=== PATIENT | male | born 1950 | race Caucasian/White ===

== ENCOUNTER 2018-02-06 07:43 | Day surgery (SDC) | payer BC, SELFPAY ==
--- NOTE | 2018-02-05 15:19 | POEE_ITS ---
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 He has developed a symptomatic nuclear and posterior subcapsular cataract of the left eye with visual acuity of 20/30, but with significant glare disability. The option of cataract surgery was offered to the patient and he wished to proceed. NOTE: The Chief Complaint, HPI, Past Medical History, Past Surgical History, Family History, Social History, Medications, and complete Ophthalmic Exam with detailed Assessment and Plan have already been documented in the patient's outpatient ophthalmic record and are not covered again in detail here. PFSH Nuclear sclerotic cataract of left eye (Acute) Posterior subcapsular age-related cataract of left eye (Acute) Diverticulitis large intestine Hyperlipidemia Hypertension Family History Mother Essential hypertension Diverticulosis of colon Hyperlipidemia Father Essential hypertension Diverticulosis of colon Heart disease Hyperlipidemia Sister Diabetes Essential hypertension Heart disease Hyperlipidemia Stroke Sister Diabetes Hyperlipidemia Family History Mother Essential hypertension Diverticulosis of colon Hyperlipidemia Father Essential hypertension Diverticulosis of colon Heart disease Hyperlipidemia Sister Diabetes Essential hypertension Heart disease Hyperlipidemia Stroke Sister Diabetes Hyperlipidemia Medical History Nuclear sclerotic cataract of left eye (Acute) Posterior subcapsular age-related cataract of left eye (Acute) Diverticulitis large intestine Hyperlipidemia Hypertension Social History Smoking/Tobacco Use Status: Never Social History Smoking/Tobacco Use Status: Never Meds Home Medications Medication Instructions Recorded Confirmed Type aspirin [Aspirin Low-Strength] 81 mg PO DAILY tab-cap 03/15/14 02/01/18 History amlodipine [Norvasc] 5 mg PO HS 02/02/18 02/02/18 History pravastatin [Pravachol] 20 mg PO HS 02/02/18 02/02/18 History Allergies Allergy/AdvReac Type Severity Reaction Status Date / Time No Known Allergies Allergy Unverified 02/01/18 13:22 Exam OCULAR EXAM:: Most recent ocular examination revealed corrected visual acuity of 20/200 right eye, 20/30 left eye. Pupils equal, round, and reactive without afferent pupillary defect intraocular pressure is 12 OD, 13 OS. Extraocular motility is normal. Slit-lamp examination reveals pupils dilating to 7 mm OU. There is a dense posterior polar cataract in the right eye with 3+ posterior subcapsular cataract. The left eye shows 2+ nuclear with 2+ posterior subcapsular cataract as well as some anterior subcapsular haze. Dilated funduscopic examination shows disc cupping of 0.25 OD, 0.3 OS the retinal vessels are normal. There are some mild macular pigmentary changes OU. Peripheral retina and vitreous is normal. BRIGHTNESS ACUITY TESTING (BAT):: Left eye brightness acuity testing of is 20/30 , low is 20/40, medium is 20/50, high is 20/100. Assessment and Plan (1) Posterior subcapsular age-related cataract of left eye: Current visit: No Status: Acute Assessment: Visually significant cataract, left eye. Plan: Cataract extraction with intraocular lens implantation, left eye (2) Nuclear sclerotic cataract of left eye: Current visit: No Status: Acute Assessment: Visually significant cataract, left eye. Plan: Cataract extraction with intraocular lens implantation, left eye Note: NOTE:: The details of the planned surgery, including the risks, indications, limitations,expectations,outcome and possible complications were explained to the patient. The patient understands the complications including, but not limited to: infection, hemorrhage, posterior dislocation of the lens or nuclear fragments which may require the intervention of a vitreoretinal surgeon, possible loss of the eye, or from anesthetic complications. The patient has been made aware of the option of not having surgery, that vision following surgery may not be equal to that prior to surgery, and that the planned surgery may not achieve the intended results. Following this discussion, which the patient appeared to understand, the patient wishes to proceed with cataract surgery with lens implantation of the affected eye to improve and maximize vision.
[2018-02-06 07:51] VITALS: BP 160/102; PULSE 76; TEMP 36.6; O2SAT 98
[2018-02-06] MEDS: Tropicam./Phenyleph. (1/2.5%) 5 ML BTL OS ×3 (08:08→08:17)
[2018-02-06] MEDS: Tetracaine 0.5% 4 ML BTL OS ×4 (08:09→09:16)
[2018-02-06] MEDS: Lidocaine 1% Pres-Free 5 ML VIAL (09:29)
[2018-02-06] MEDS: Lidocaine 2% Jelly 6 ML SYR (09:29)
[2018-02-06] MEDS: Balanced Salt Soln.-PLUS 500 ML BAG (09:33)
[2018-02-06] MEDS: Povidone-Iodine Ophth 30 ML BTL (09:40)
--- NOTE | 2018-02-06 09:45 | W.PM.DSUDISC ---
Discharge Plan Discharge Details Attending Provider: Abner Monroy Primary Care Provider: Yefri Madrid Home Meds and New Rx's Prescriptions: No Action aspirin [Aspirin Low-Strength] 81 MG tablet,chewable 81 mg PO DAILY RF: 0 amlodipine [Norvasc] 5 MG tablet 5 mg PO HS RF: 0 pravastatin [Pravachol] 20 MG tablet 20 mg PO HS RF: 0 Discharge Instructions Stand Alone Forms: Post-op Topical Cataract, Finn Block (DSU) DS: Diagnosis Discharge Diagnosis (1) Posterior subcapsular age-related cataract of left eye: Status: Resolved (2) Nuclear sclerotic cataract of left eye: Status: Resolved (3) Status post cataract extraction and insertion of intraocular lens of left eye: Status: Acute
--- NOTE | 2018-02-06 09:47 | ROE_ITS ---
Date of service: 02/06/18 Time of Service: 09:45 Operative Note DATE OF PROCEDURE: 02/06/18 PRE-OP DIAGNOSIS: Cataract, left eye POST-OP DIAGNOSIS: same PROCEDURE: Cataract extraction using phacoemulsification with intraocular lens implant, left eye SURGEON: Abner Monroy ANESTHESIA: MAC and local (sub-tenon's anesthetic infiltration) PATHOLOGY: none sent COMPLICATIONS: None Patient was transported to: same day Patient's condition: stable Implants: [employer] / [employer] Tecnis [id number] Indications: Progressive decreased vision due to cataract, left eye Procedure Description: CATARACT SURGERY OPERATIVE REPORT PREOPERATIVE DIAGNOSIS: Nuclear/posterior subcapsular cataract, left eye POSTOPERATIVE DIAGNOSIS: Same OPERATION: Cataract extraction using phacoemulsification with posterior chamber intraocular lens implant, left eye. IOL: IOL Bridal Stylist Sales Consultant/Model: [employer] / SANA [employer]ecnis ZCB00 IOL Power: + 18.0 diopters IOL Serial Number: [id number] Optic Diameter: 6.0mm Haptic/Overall Diameter: 13.0mm PHACO INFO: Jean[employer]Paul [employer] Vision System with OZil and Active [employer]uidics Cumulative Dispersed Energy (CDE): 6.48 seconds SURGEON: Abner Monroy MD, IVETH ANESTHESIA: Monitored Anesthesia Care (MAC), with local sub-tenon's anesthetic infiltration COMPLICATIONS: None SPECIMENS: None INDICATIONS FOR PROCEDURE: The patient is a 67-year-old male with history of progressive decreased vision in his left eye. He was noted to have a significant nuclear and posterior subcapsular cataract in the left eye. The option of cataract surgery was offered to the patient and he felt he was symptomatic enough that he wished to proceed. PROCEDURE: The correct surgical eye was identified and marked as the left eye and the pupil was dilated in the preoperative area using mydriatics and cycloplegics. The dilated pupil size was 7.0 mm. Oral sedation was administered in the form of an Imprimis MKO Melt (midazolam 3mg/ketamine 25mg/ ondansetron 2mg). The patient was brought to the operating room where cardiopulmonary monitoring was instituted and surgical time-out was performed, confirming the correct operative eye and IOL power. Topical anesthesia was administered and ophthalmic povidone-iodine 5% was instilled into the conjunctival fornices. Lidocaine gel was applied to the cornea and the raúl-ocular area was prepped with Betadine 10% solution and draped in the usual sterile fashion for intraocular surgery, including an aperture drape. A Tegaderm transparent film dressing was cut in half and used to cover the lashes and lid margins. Care was taken to sequester the lashes and lid margins under the Tegaderm dressing. A lid speculum was placed between the lids of the operative eye and the [facility] operating microscope was maneuvered into position. Barron scissors were then used to make a conjunctival buttonhole approximately 6mm posterior to the limbus in the inferonasal quadrant. Blunt dissection was carried out to expose bare sclera, and a blunt-tipped sub-tenon? s anesthesia cannula was introduced and passed posteriorly along the globe where non-preserved plain lidocaine was injected into posterior sub-Tenon?s space. A sideport knife was used to make a paracentesis port at the 12:00 postion and the anterior chamber was filled with Healon GV. A 2.4mm keratome knife was used to create a half-thickness groove at the limbus and then to construct a three-plane near-clear corneal tunnel extending 2.0mm into clear cornea at the 3:00 position. A flap was raised on the anterior capsule and capsulorhexis forceps were used to complete a continuous curvilinear capsulorhexis of 5.5 mm. Balanced salt solution was then used to perform cortical cleaving hydrodissection and nuclear hydrodelineation until the lens could be freely rotated within the capsular bag. The lens nucleus was then disassembled and removed within the capsular bag and iris plane using phacoemulsification. Residual cortical material was removed using the 45-degree angled silicone I/A tip with 0.3mm port. The posterior capsule was carefully polished to remove as much residual lens epithelial cells as safely possible. The capsular bag was then inflated and the anterior chamber deepened with viscoelastic. The lens implant described above was inserted into the capsular bag using the SANA Oketo Injector. A Kuglen hook was used to dial the IOL into position. Residual viscoelastic was then removed first from posterior to the IOL, then from the anterior chamber using the I/A handpiece. The lens implant was noted to center nicely within the capsular bag. The incisions were stromally hydrated , and the anterior chamber was reformed using BSS. Then 0.4cc of moxifloxacin 1.5mg/ml were injected into the capsular bag and anterior chamber. The incisions were checked with a Weck spear and found to be secure. Several drops of ophthalmic povidone-iodine 5% were then applied to the eye followed by two drops of Imprimis combination moxifloxacin/dexamethasone solution. The drapes were removed and a clear plastic protective eye shield was placed over the eye. The patient was then returned to [facility] in stable condition.
[2018-02-06 10:15] VITALS: BP 136/90; PULSE 74; RESP 18; TEMP 37; O2SAT 95
== END 2018-02-06 13:00 | disposition home or self-care (01) ==
LOC: SUR 07:44
PROVIDERS: PCP Emergency Medicine; Visit Provider Ophthalmology
PROC: (CPT 66984; principal; 2018-02-06 09:30)
DX: H25.812 Combined forms of age-related cataract, left eye (principal); I10 Essential (primary) hypertension
CPT/HCPCS: 66984; V2632

== ENCOUNTER 2018-03-15 09:45 | Outpatient (CLI) | payer BC, SELFPAY | END 2018-03-15 10:05 | PROVIDERS: PCP Emergency Medicine; Visit Provider Urology | DX: N42.9 Disorder of prostate, unspecified (principal) | CPT/HCPCS: 36415; 84153 ==

== ENCOUNTER 2018-03-30 09:34 | Outpatient (CLI) | payer BC, SELFPAY ==
[2018-03-30 09:07] LABS: CREATININE 0.87 mg/dL (0.70-1.30)
--- NOTE | 2018-03-30 09:35 | DI.CT_ITS ---
SYMPTOM/DIAGNOSIS: RECURRENT DIVERTICULITIS CT ABDOMEN AND PELVIS: Comparison is made with 21 Oct 2013. Images were performed from the lung bases through the ischial tuberosities after IV and oral contrast. The oral contrast opacifies the mid to distal small bowel and the colon to the level of the lower descending. There are numerous diverticula in the sigmoid colon. There is no surrounding inflammation. There is no free air or free fluid. The small bowel is unremarkable. The heart size is normal. The lung bases are clear. The liver, gallbladder, spleen, pancreas, kidneys and adrenals are unremarkable. There is a diverticulum of the descending duodenum. The aorta and iliac arteries show calcification but are normal in diameter. The prostate is slightly enlarged. The bladder is unremarkable. Mild degenerative changes are seen in the lumbar spine. IMPRESSION: diverticulosis greatest in the sigmoid region. No evidence of diverticulitis.
[2018-03-30] MEDS: Omnipaque 350 MG/ML 100 ML BTL IJ (09:46)
[2018-03-30] MEDS: Omnipaque 350 MG/ML 50 ML BTL PO (09:47)
[2018-03-30] MEDS: Breeza Beverage 473 ML BTL PO ×2 (09:47→09:48)
[2018-03-30] MEDS: Normal Saline Flush 10 ML SYR IVP (09:48)
== END 2018-03-30 09:54 ==
PROVIDERS: PCP Emergency Medicine; Visit Provider Emergency Medicine
DX: K57.30 Diverticulosis of large intestine without perforation or abscess without bleeding (principal); K57.10 Diverticulosis of small intestine without perforation or abscess without bleeding; N40.0 Benign prostatic hyperplasia without lower urinary tract symptoms
CPT/HCPCS: 36415; 74177; 82565; J3490; Q9967

== ENCOUNTER 2018-09-13 09:39 | Outpatient (CLI) | payer BC, SELFPAY | END 2018-09-13 09:59 | PROVIDERS: PCP Emergency Medicine; Visit Provider Urology | DX: N40.0 Benign prostatic hyperplasia without lower urinary tract symptoms (principal) | CPT/HCPCS: 36415; 84153 ==

== ENCOUNTER 2019-03-06 09:55 | Outpatient (CLI) | payer BC, SELFPAY ==
[2019-03-07 13:08] LABS: PSA, Diagnostic 1.2 ng/mL (0.0-4.5)
== END 2019-03-06 10:15 ==
PROVIDERS: PCP Emergency Medicine; Visit Provider Urology
DX: N40.2 Nodular prostate without lower urinary tract symptoms (principal)
CPT/HCPCS: 36415; 84153

== ENCOUNTER → 2019-09-11 08:26 | Outpatient (BNVA) | payer MEDICARE, BC, SELFPAY | PROVIDERS: PCP Emergency Medicine; Referring Provider Emergency Medicine; Visit Provider Urology | DX: N40.2 Nodular prostate without lower urinary tract symptoms (principal); I10 Essential (primary) hypertension | CPT/HCPCS: 99213 ==

== ENCOUNTER → 2019-09-11 08:26 | Outpatient (BNVA) | payer MEDICARE, SELFPAY | PROVIDERS: PCP Emergency Medicine; Referring Provider Emergency Medicine; Visit Provider Urology | DX: R69 Illness, unspecified (principal) ==

== ENCOUNTER 2019-09-11 14:37 | Outpatient (REF) | payer MEDICARE, SELFPAY ==
[2019-09-12 09:26] LABS: PSA, Diagnostic 1.1 ng/mL (0.0-4.5)
== END 2019-09-11 14:57 ==
LOC: LBN 14:37
PROVIDERS: PCP Emergency Medicine; Visit Provider Urology
DX: N40.2 Nodular prostate without lower urinary tract symptoms (principal)
CPT/HCPCS: 84153

== ENCOUNTER 2019-10-30 09:17 | Outpatient (REF) | payer MEDICARE, SELFPAY ==
[2019-10-30 13:31] LABS: Calculated LDL 149 mg/dL (<100); Cholesterol 225 mg/dL (<200); HDL Cholesterol 53 mg/dL (40-60); Triglyceride 118 mg/dL (<150)
== END 2019-10-30 09:37 ==
LOC: LBN 09:17
PROVIDERS: PCP Emergency Medicine; Visit Provider Emergency Medicine
DX: I10 Essential (primary) hypertension (principal)
CPT/HCPCS: 80061

== ENCOUNTER → 2019-11-07 13:19 | Outpatient (BNVA) | payer MEDICARE, SELFPAY | PROVIDERS: PCP Emergency Medicine; Referring Provider Emergency Medicine; Visit Provider Surgery | DX: C44.622 Squamous cell carcinoma of skin of right upper limb, including shoulder (principal); I10 Essential (primary) hypertension | CPT/HCPCS: 11602; 99202; 99213 ==

== ENCOUNTER 2019-11-07 14:51 | Outpatient (REF) | payer MEDICARE, SELFPAY ==
--- NOTE | 2019-11-07 14:20 | SKI_PTH ---
PATIENT: Philpi Heller JR LOC: GENE U#:[id number] AGE/SX: 68/M ROOM: RE11/07/[address]: Shauna Bales : 1950 BED: DIS: 11/07/2019 SPEC #: [id number] RECD: 11/07/19 16:42 STATUS: KRISTIN REQ #: [id number] SRIDHAR: 11/07/19 14:[address]: Shauna Bales DEPT: Surgical Specimen RECD BY: Mireille Asencio ENTERED: 11/07/19 16:43 SP TYPE: GWYN HAWKINS DR: Yefri Madrid DO Tissues: 1 - SKIN BIOPSY(SHAVE/PUNCH) Procedures: SKIN LEVEL 4 Comments: [id number]
== END 2019-11-07 15:11 ==
LOC: LBN 14:51
PROVIDERS: PCP Emergency Medicine; Visit Provider Surgery
DX: C44.622 Squamous cell carcinoma of skin of right upper limb, including shoulder (principal)
CPT/HCPCS: 88305

== ENCOUNTER → 2019-11-16 08:57 | Outpatient (BNVA) | payer MEDICARE, SELFPAY | PROVIDERS: PCP Emergency Medicine; Referring Provider Emergency Medicine; Visit Provider Surgery | DX: C44.92 Squamous cell carcinoma of skin, unspecified (principal); I10 Essential (primary) hypertension ==

== ENCOUNTER → 2019-11-21 09:25 | Outpatient (BNVA) | payer MEDICARE, SELFPAY | PROVIDERS: PCP Emergency Medicine; Referring Provider Emergency Medicine; Visit Provider Surgery | DX: Z48.817 Encounter for surgical aftercare following surgery on the skin and subcutaneous tissue (principal); C44.92 Squamous cell carcinoma of skin, unspecified; I10 Essential (primary) hypertension | CPT/HCPCS: 99212 ==

== ENCOUNTER → 2020-03-11 08:45 | Outpatient (BNVA) | payer MEDICARE, SELFPAY | PROVIDERS: PCP Emergency Medicine; Referring Provider Emergency Medicine; Visit Provider Urology | DX: N40.2 Nodular prostate without lower urinary tract symptoms (principal) | CPT/HCPCS: 99213 ==

== ENCOUNTER 2020-03-11 10:27 | Outpatient (REF) | payer MEDICARE, SELFPAY ==
[2020-03-11 17:56] LABS: PSA, Diagnostic 1.3 ng/mL (0.0-4.5)
== END 2020-03-11 10:47 ==
LOC: LBN 10:27
PROVIDERS: PCP Emergency Medicine; Visit Provider Urology
DX: N40.2 Nodular prostate without lower urinary tract symptoms (principal)
CPT/HCPCS: 84153

== ENCOUNTER 2020-08-29 01:47 | Outpatient (CLI) | payer MEDICARE, SELFPAY ==
[2020-08-29 09:44] LABS: ALT 30 U/L (16-63); AST 20 U/L (15-37); Albumin 3.8 g/dL (3.4-5.0); Alkaline Phosphatase 76 U/L (46-116); Anion Gap 10.6 mmol/L (3-11); BUN 13 mg/dL (7-18); Bilirubin, Total 1.1 mg/dL (0.2-1.0); CO2 28.4 mmol/L (21.0-32.0); CREATININE 0.9 mg/dL (0.70-1.30); Calculated LDL 119 mg/dL (<100); Chloride 105 mmol/L (98-107); Cholesterol 186 mg/dL (<200); Glucose 96 mg/dL (74-106); HDL Cholesterol 51 mg/dL (40-60); Potassium 4.3 mmol/L (3.5-5.1); Sodium 144 mmol/L (136-145); Total Protein 6.7 g/dL (6.4-8.2); Triglyceride 83 mg/dL (<150)
== END 2020-08-29 01:48 | disposition home or self-care (01) ==
LOC: LBO 01:47
PROVIDERS: Urology; PCP Emergency Medicine; Visit Provider Nurse Practitioner Family
DX: I10 Essential (primary) hypertension (principal); N40.2 Nodular prostate without lower urinary tract symptoms
CPT/HCPCS: 36415; 80053; 80061; 84153

== ENCOUNTER → 2020-09-12 09:49 | Outpatient (BNVA) | payer MEDICARE, SELFPAY | PROVIDERS: PCP Emergency Medicine; Referring Provider Emergency Medicine; Visit Provider Urology | DX: N40.2 Nodular prostate without lower urinary tract symptoms (principal) | CPT/HCPCS: 99213 ==

== ENCOUNTER 2021-03-11 03:17 | Outpatient (CLI) | payer MEDICARE, SELFPAY ==
[2021-03-11 23:09] LABS: PSA, Diagnostic 1.5 ng/mL (0.0-4.5)
== END 2021-03-11 03:18 | disposition home or self-care (01) ==
LOC: LBO 03:18
PROVIDERS: PCP Emergency Medicine; Visit Provider Urology
DX: N40.2 Nodular prostate without lower urinary tract symptoms (principal)
CPT/HCPCS: 36415; 84153

== ENCOUNTER → 2021-03-17 10:23 | Outpatient (BNVA) | payer MEDICARE, SELFPAY | PROVIDERS: PCP Physician Assistant; Referring Provider Emergency Medicine; Visit Provider Urology | DX: N40.2 Nodular prostate without lower urinary tract symptoms (principal) | CPT/HCPCS: 99213 ==

== ENCOUNTER → 2021-04-22 13:46 | Outpatient (BNVA) | payer MEDICARE, SELFPAY | PROVIDERS: PCP Physician Assistant; Referring Provider Urology; Visit Provider Psychiatry & Neurology Neurology | DX: R42 Dizziness and giddiness (principal) | CPT/HCPCS: 99214 ==

== ENCOUNTER 2021-04-23 07:11 | Outpatient (CLI) | payer MEDICARE, SELFPAY ==
--- NOTE | 2021-05-11 10:31 | W.CARDEVENT ---
Date of service: 05/11/21 Time of Service: 10:31 Cardiac Event Recorder Referring Provider:: Jaylene Taveras Indications:: Dizziness Cardiac Event Note: There is a 14-day cardiac event monitor ordered for dizziness. Predominant rhythm was sinus with an average heart rate of 59. Minimum was 41, maximum 134 There were very rare atrial and ventricular ectopic beats A total of 12 brief self-limited atrial runs occurred, the longest of which was 7 beats in duration There was no atrial fibrillation, no high-grade AV block, no pauses greater than 3 seconds Patient symptoms were reported. These corresponded to sinus rhythm at 59, sinus rhythm at 64, sinus rhythm at 80, sinus rhythm at 63, sinus rhythm at 84, sinus rhythm at 78, sinus rhythm at 51, sinus rhythm at 72, sinus rhythm at 90. Overall there is no correlation of the patient's symptoms with any dysrhythmia
== END 2021-04-23 07:12 | disposition home or self-care (01) ==
LOC: RT 07:12
PROVIDERS: PCP Physician Assistant; Visit Provider Psychiatry & Neurology Neurology
DX: R42 Dizziness and giddiness (principal)
CPT/HCPCS: 93246

== ENCOUNTER 2021-05-01 10:31 | Outpatient (CLI) | payer MEDICARE, SELFPAY | END 2021-05-01 10:32 | LOC: CARDO 06-08 11:43 | PROVIDERS: PCP Physician Assistant; Visit Provider Internal Medicine Cardiovascular Disease | DX: R69 Illness, unspecified (principal) ==

== ENCOUNTER 2021-05-02 10:08 | Emergency (ER) | payer MEDICARE, SELFPAY ==
--- NOTE | 2021-05-02 10:15 | RT.EKG_ITS ---
APPROVED REPORT Exam: Resting ECG Reason for Exam: lightheaded, left arm sensation Patient Location: E HR:64 bpm ECG Measurements Heart Rate 64 AXIS CA 227 P 53 QRSd 79 QRS 34 QT 376 T 31 QTc 389 Conclusion Sinus arrhythmia...V-rate 52- 75, variation>10% Prolonged CA interval...CA >220, V-rate 50- 90. Sinus. Normal axis. No STEMI. I have reviewed and interpreted ECG and agree with software generated interpretation.
[2021-05-02 10:26] VITALS: BP 142/78; PULSE 73; RESP 15; TEMP 36.7; O2SAT 99
[2021-05-02 10:32] VITALS: RESP 15
[2021-05-02 11:16] LABS: Abs Immature Grans 0.04 10^3/uL (0.0-0.06); Absolute Basophil Count 0.07 10^3/uL (0.0-0.2); Absolute Eosinophil Count 0.15 10^3/uL (0.0-0.7); Absolute Lymphocyte Count 1.37 10^3/uL (1.2-3.4); Absolute Monocyte Count 0.61 10^3/uL (0.1-0.8); Absolute Neutrophil Count 7.06 10^3/uL (1.2-6.7); Basophils % 0.8; Eosinophils % 1.6; HCT 48.1 % (40.0-50.0); HGB 16.3 g/dL (13.5-17.5); Immature Grans % 0.4; Lymphocytes % 14.7; MCH 29.5 pg (27.0-33.0); MCHC 33.9 % (32.0-36.0); MPV 10.2 fL (8.0-11.0); Monocytes % 6.6; Neutrophils % 75.9; Nucleated RBC 0 %; Platelet Count 254 10^3/uL (130-400); RBC 5.53 10^6/uL (4.36-5.78); RDW 12.8 % (11.8-14.1); RDW-SD 40.7 fL
[2021-05-02 11:33] LABS: ALT 25 U/L (16-63); AST 26 U/L (15-37); Albumin 3.8 g/dL (3.4-5.0); Alkaline Phosphatase 76 U/L (46-116); Anion Gap 4.6 mmol/L (3-11); BUN 9 mg/dL (7-18); Bilirubin, Total 0.7 mg/dL (0.2-1.0); CO2 28.4 mmol/L (21.0-32.0); CREATININE 0.9 mg/dL (0.70-1.30); Calcium 8.9 mg/dL (8.5-10.1); Chloride 109 mmol/L (98-107); Glucose 105 mg/dL (74-106); Magnesium 2.3 mg/dL (1.8-2.4); Potassium 4.1 mmol/L (3.5-5.1); Sodium 142 mmol/L (136-145); Total Protein 6.8 g/dL (6.4-8.2); Troponin I < 50 ng/L (<or=60)
[2021-05-02 11:47] LABS: D-Dimer 364 ng/mlFEU (<500)
[2021-05-02 13:36] VITALS: BP 139/76; PULSE 60; RESP 15; TEMP 36.6
[2021-05-02 14:14] VITALS: BP 140/80; PULSE 60; RESP 14; TEMP 36.6; O2SAT 96
--- NOTE | 2021-05-02 14:15 | RT.EKG_ITS ---
APPROVED REPORT Exam: Resting ECG Reason for Exam: Lightheadedness Patient Location: E HR:60 bpm ECG Measurements Heart Rate 60 AXIS OR 227 P 40 QRSd 85 QRS 27 QT 404 T 27 QTc 405 Conclusion Sinus rhythm...normal P axis, V-rate 60- 99 Prolonged OR interval...OR >220, V-rate 50- 90. Sinus. Normal axis. No STEMI. I have reviewed and interpreted ECG and agree with software generated interpretation.
[2021-05-02 14:19] LABS: Troponin I < 50 ng/L (<or=60)
--- NOTE | 2021-05-02 14:23 | W.ED.GENAD ---
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 If you have any new or significant worsening of symptoms return immediately to the emergency department for reassessment. Referrals: Duong Gomez [Primary Care Provider] - (As needed for reassessment) Discharge Data Discharge Date/Time-TO BE ENTERED AT DEPARTURE: 05/02/21 14:42 Medical Decision Making Patient presenting to the emergency department for chief complaint of lightheadedness and some abnormal sensation in the left upper extremity. He states he has been having these episodes now for 2 months and is wearing a Zio patch. Patient has seen neurology and they are continuing work-up. Patient denies fever chills, injury or trauma, syncope. Patient states that the majority of symptoms have resolved and that significant other wanted him to come get checked out. He does state that this is very typical of what he had in the past. Physical exam is unremarkable for any acute worrisome findings. Plan to perform cardiac work-up along with continuing monitoring patient. Please see EKG interpretation from Dr. Rae but patient appears to be in sinus rhythm with no acute signs of STEMI. Review of labs is unremarkable and shows nondiagnostic CBC, D-dimer at 364, CMP nondiagnostic nonworrisome and troponins both negative. Reassessed patient and patient is completely asymptomatic and feeling back to baseline. Given unremarkable work-up I do feel the patient is safe for outpatient follow-up and to continue with neurology recommendations. Close monitoring of symptoms along with return and follow-up precautions were discussed with patient. Lab Data Labs: Laboratory Tests Range/Units 05/02/21 05/02/21 05/02/21 11:06 11:06 11:06 WBC (4.4-10.8) 10^3/uL 9.30 RBC (4.36-5.78) 10^6/uL 5.53 Hgb (13.5-17.5) g/dL 16.3 Hct (40.0-50.0) % 48.1 MCV (80-95) fL 87.0 MCH (27.0-33.0) pg 29.5 MCHC (32.0-36.0) % 33.9 RDW (11.8-14.1) % 12.8 Plt Count (130-400) 10^3/uL 254 MPV (8.0-11.0) fL 10.2 Immature Gran % 0.4 Neutrophils % 75.9 Lymphocytes % 14.7 Monocytes % 6.6 Eosinophils % 1.6 Basophils % 0.8 Nucleated RBC % % 0 Absolute Neutrophils (1.2-6.7) 10^3/uL 7.06 H Absolute Lymphocytes (1.2-3.4) 10^3/uL 1.37 Absolute Monocytes (0.1-0.8) 10^3/uL 0.61 Absolute Eosinophils (0.0-0.7) 10^3/uL 0.15 Absolute Basophils (0.0-0.2) 10^3/uL 0.07 D-Dimer (<500) ng/mlFEU 364 Sodium (136-145) mmol/L 142 Potassium (3.5-5.1) mmol/L 4.1 Chloride (98-107) mmol/L 109 H Carbon Dioxide (21.0-32.0) mmol/L 28.4 Anion Gap (3-11) mmol/L 4.6 BUN (7-18) mg/dL 9 Creatinine (0.70-1.30) mg/dL 0.9 Estimated GFR/1.73 m2 (mL/min/1.73m2) >= 60.00 Glucose (74-106) mg/dL 105 Calcium (8.5-10.1) mg/dL 8.9 Magnesium (1.8-2.4) mg/dL 2.3 Total Bilirubin (0.2-1.0) mg/dL 0.7 AST (15-37) U/L 26 ALT (16-63) U/L 25 Alkaline Phosphatase (46-116) U/L 76 Troponin I (<or=60) ng/L < 50 Total Protein (6.4-8.2) g/dL 6.8 Albumin (3.4-5.0) g/dL 3.8 Range/Units 05/02/21 13:55 WBC (4.4-10.8) 10^3/uL RBC (4.36-5.78) 10^6/uL Hgb (13.5-17.5) g/dL Hct (40.0-50.0) % MCV (80-95) fL MCH (27.0-33.0) pg MCHC (32.0-36.0) % RDW (11.8-14.1) % Plt Count (130-400) 10^3/uL MPV (8.0-11.0) fL Immature Gran % Neutrophils % Lymphocytes % Monocytes % Eosinophils % Basophils % Nucleated RBC % % Absolute Neutrophils (1.2-6.7) 10^3/uL Absolute Lymphocytes (1.2-3.4) 10^3/uL Absolute Monocytes (0.1-0.8) 10^3/uL Absolute Eosinophils (0.0-0.7) 10^3/uL Absolute Basophils (0.0-0.2) 10^3/uL D-Dimer (<500) ng/mlFEU Sodium (136-145) mmol/L Potassium (3.5-5.1) mmol/L Chloride (98-107) mmol/L Carbon Dioxide (21.0-32.0) mmol/L Anion Gap (3-11) mmol/L BUN (7-18) mg/dL Creatinine (0.70-1.30) mg/dL Estimated GFR/1.73 m2 (mL/min/1.73m2) Glucose (74-106) mg/dL Calcium (8.5-10.1) mg/dL Magnesium (1.8-2.4) mg/dL Total Bilirubin (0.2-1.0) mg/dL AST (15-37) U/L ALT (16-63) U/L Alkaline Phosphatase (46-116) U/L Troponin I (<or=60) ng/L < 50 Total Protein (6.4-8.2) g/dL Albumin (3.4-5.0) g/dL HPI General Mode of arrival: ambulatory. Date/Time Provider Initiated Documentation: 05/02/21 10:33. Limitations to Documentation: no limitations. Information obtained by: patient. History of Present Illness 70 year old M presents to the emergency department with the chief complaint of Lightheadedness and left arm warm sensation, described as similar to prior episodes, Quality is described as other (denies pain), Patient started experiencing this hour(s) (1) and it has been now resolved. improves with No relieving factors improve symptom(s), No exacerbating factors reported . Patient notes no other symptoms.. Patient did receive the following treatments prior to arrival, none Related Data Home Medications Medication Instructions Recorded Confirmed amlodipine 5 mg tablet (Norvasc) 5 mg PO HS #90 tab 10/15/20 05/02/21 pravastatin 40 mg tablet 40 mg PO DAILY #90 tab 10/30/20 05/02/21 fluticasone propionate 50 2 spray INTRANASAL DAILY 30 Days 12/02/20 05/02/21 mcg/actuation nasal #16 g spray,suspension (Flonase Allergy Relief) Previous Rx's Medication Instructions Recorded amlodipine 5 mg tablet (Norvasc) 5 mg PO HS #90 tab 10/15/20 pravastatin 40 mg tablet 40 mg PO DAILY #90 tab 10/30/20 fluticasone propionate 50 2 spray INTRANASAL DAILY 30 Days 12/02/20 mcg/actuation nasal #16 g spray,suspension (Flonase Allergy Relief) Allergies Allergy/AdvReac Type Severity Reaction Status Date / Time No Known Allergies Allergy Verified 05/02/21 11:17 General Stated Complaint: GenMedical MANUEL: 2 Review of Systems Constitutional Constitutional: Denies chills, Denies fever(s) and Denies malaise Cardiovascular Cardiovascular: Reports as per HPI, Denies chest pain, Denies chest pain with activity, Denies syncope, Reports irregular heart rhythm, Reports lightheadedness, Denies palpitations and Denies dyspnea Respiratory Respiratory: Denies cough and Denies dyspnea Gastrointestinal Gastrointestinal: Denies abdominal pain, Denies nausea and Denies vomiting Neurologic Neurologic: Denies syncope Psychiatric Psychiatric: Denies anxiety Endocrine Endocrine: Denies palpitations PFSH All Active Problems Lightheadedness (Acute) Chronic rhinitis (Acute) Postnasal drip (Acute) Crackling sound in both ears (Acute) Unable to pass flatus (Acute) Sensorineural hearing loss of both ears (Acute) Middle ear effusion (Acute) Squamous cell skin cancer (Acute) Skin lesion (Acute) Diverticulitis of large intestine with abscess without bleeding (Acute 05/16/15) Prostatitis (Acute 01/31/12) Diverticulitis of colon (Acute) Basal cell carcinoma of face (Acute) Status post cataract extraction and insertion of intraocular lens of left eye (Acute 02/06/18) Prostate nodule (Acute 05/16/15) Hyperlipidemia (Acute) Essential hypertension (Acute 03/22/13) Diastasis recti (Acute 06/30/16) Cervical radiculopathy (Acute 06/30/16) left Cataract (Acute 01/31/12) RIGHT Actinic keratosis (Acute 05/16/15) Medical History Diverticulitis large intestine Hyperlipidemia Hypertension Nuclear sclerotic cataract of left eye Posterior subcapsular age-related cataract of left eye Surgical History History of basal cell carcinoma excision History of colonoscopy History of eye surgery Family History Mother , 84 Essential hypertension Diverticulosis of colon Hyperlipidemia Father , 79 Essential hypertension Diverticulosis of colon Heart disease Hyperlipidemia Sister , 78 Diabetes Essential hypertension Heart disease Hyperlipidemia Stroke Sister , 75 Diabetes Hyperlipidemia Social History Smoking/Tobacco Use Status: Never Second Hand Exposure: Yes Smoking risk assessment performed?: Yes Alcohol Intake: former Drug use: Never Substance use type: does not use Caregiver/Support person: No Household members: spouse Housing: house Number of Children: 2 Communication Needs: Corrective Lenses Do you need help understanding health information?: Never current occupation: Retired Pets and animals: Yes Pets and animals: cat(s) Sexually active: Yes Do you think of yourself as: straight/heterosexual Current gender identity: decline to answer What is your relationship status?: How often do you talk on the phone with friends or family?: three or more times per week How often do you get together with friends or relatives?: twice per week How often do you attend scientologist or yarsani services?: 4 or more times per year Do you belong to any clubs or organized social groups?: yes Panel score (0-1 are the most socially isolated patients): 4 What type of physical activity do you participate in: walking Duration: > 90 minutes/day Frequency: daily Chrissy/Catholic: Orthodox Special chrissy needs: No Seatbelt use: always 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 Do you feel safe at home: Yes Do you feel safe in your relationship?: Yes Exam Const General: cooperative, healthy appearing, comfortable, no acute distress, not diaphoretic and not ill appearing Nutritional Appearance: average body habitus Orientation: alert, awake and oriented x3 Limitations: mental status not altered Neck Neck: normal visual inspection, full ROM, trachea midline, supple and no anterior neck swelling Thyroid: thyroid normal Carotids: normal carotid upstroke and no bruits Resp Effort & Inspection: normal respiratory effort and able to speak in complete sentences Auscultation: clear to auscultation bilaterally Cardio Jugular venous pressure: no JVD Palpation: normal PMI Rate: regular rate Rhythm: regular rhythm Heart Sounds: S1 normal, S2 normal, no click, no gallops, no murmurs and no rubs Bruits: no carotid bruits Pulses: radial pulses present bilaterally 2+ Skin General skin exam: no rashes or lesions noted Neuro General: patient alert, patient awake, patient oriented x3, gait normal, tone normal, moves all extremities, no focal motor deficits, CN's II-XI intact bilaterally and not confused Cognition: normal cognition Speech: speech normal Sensory Exam: no sensory deficits noted Course Vital Signs Vital signs: Vital Signs Temperature 36.7 C 05/02/21 10:26 Pulse 73 05/02/21 10:26 Respiratory Rate 15 05/02/21 10:26 Blood Pressure 142/78 H 05/02/21 10:26 Pulse Oximetry 99 05/02/21 10:26 Temperature 36.6 C 05/02/21 14:14 Temperature Source Temporal Artery Scan 05/02/21 13:36 Pulse 60 05/02/21 14:14 Respiratory Rate 14 05/02/21 14:14 Respiratory Effort Non-Labored 05/02/21 10:32 Respiratory Depth Normal 05/02/21 10:32 Respiratory Pattern Normal 05/02/21 10:32 Blood Pressure 140/80 05/02/21 14:14 Blood Pressure Position Supine 05/02/21 10:26 Pulse Oximetry 96 05/02/21 14:14 Oxygen Delivery Method Room Air 05/02/21 13:36 Oxygen Flow Rate 0 05/02/21 13:36 Pain Level 0 05/02/21 14:14 Lab/Test Results Lab/Test Results: Laboratory Tests Range/Units 05/02/21 05/02/21 05/02/21 11:06 11:06 11:06 WBC (4.4-10.8) 10^3/uL 9.30 RBC (4.36-5.78) 10^6/uL 5.53 Hgb (13.5-17.5) g/dL 16.3 Hct (40.0-50.0) % 48.1 MCV (80-95) fL 87.0 MCH (27.0-33.0) pg 29.5 MCHC (32.0-36.0) % 33.9 RDW (11.8-14.1) % 12.8 Plt Count (130-400) 10^3/uL 254 MPV (8.0-11.0) fL 10.2 Immature Gran % 0.4 Neutrophils % 75.9 Lymphocytes % 14.7 Monocytes % 6.6 Eosinophils % 1.6 Basophils % 0.8 Nucleated RBC % % 0 Absolute Neutrophils (1.2-6.7) 10^3/uL 7.06 H Absolute Lymphocytes (1.2-3.4) 10^3/uL 1.37 Absolute Monocytes (0.1-0.8) 10^3/uL 0.61 Absolute Eosinophils (0.0-0.7) 10^3/uL 0.15 Absolute Basophils (0.0-0.2) 10^3/uL 0.07 D-Dimer (<500) ng/mlFEU 364 Sodium (136-145) mmol/L 142 Potassium (3.5-5.1) mmol/L 4.1 Chloride (98-107) mmol/L 109 H Carbon Dioxide (21.0-32.0) mmol/L 28.4 Anion Gap (3-11) mmol/L 4.6 BUN (7-18) mg/dL 9 Creatinine (0.70-1.30) mg/dL 0.9 Estimated GFR/1.73 m2 (mL/min/1.73m2) >= 60.00 Glucose (74-106) mg/dL 105 Calcium (8.5-10.1) mg/dL 8.9 Magnesium (1.8-2.4) mg/dL 2.3 Total Bilirubin (0.2-1.0) mg/dL 0.7 AST (15-37) U/L 26 ALT (16-63) U/L 25 Alkaline Phosphatase (46-116) U/L 76 Troponin I (<or=60) ng/L < 50 Total Protein (6.4-8.2) g/dL 6.8 Albumin (3.4-5.0) g/dL 3.8 Range/Units 05/02/21 13:55 WBC (4.4-10.8) 10^3/uL RBC (4.36-5.78) 10^6/uL Hgb (13.5-17.5) g/dL Hct (40.0-50.0) % MCV (80-95) fL MCH (27.0-33.0) pg MCHC (32.0-36.0) % RDW (11.8-14.1) % Plt Count (130-400) 10^3/uL MPV (8.0-11.0) fL Immature Gran % Neutrophils % Lymphocytes % Monocytes % Eosinophils % Basophils % Nucleated RBC % % Absolute Neutrophils (1.2-6.7) 10^3/uL Absolute Lymphocytes (1.2-3.4) 10^3/uL Absolute Monocytes (0.1-0.8) 10^3/uL Absolute Eosinophils (0.0-0.7) 10^3/uL Absolute Basophils (0.0-0.2) 10^3/uL D-Dimer (<500) ng/mlFEU Sodium (136-145) mmol/L Potassium (3.5-5.1) mmol/L Chloride (98-107) mmol/L Carbon Dioxide (21.0-32.0) mmol/L Anion Gap (3-11) mmol/L BUN (7-18) mg/dL Creatinine (0.70-1.30) mg/dL Estimated GFR/1.73 m2 (mL/min/1.73m2) Glucose (74-106) mg/dL Calcium (8.5-10.1) mg/dL Magnesium (1.8-2.4) mg/dL Total Bilirubin (0.2-1.0) mg/dL AST (15-37) U/L ALT (16-63) U/L Alkaline Phosphatase (46-116) U/L Troponin I (<or=60) ng/L < 50 Total Protein (6.4-8.2) g/dL Albumin (3.4-5.0) g/dL
== END 2021-05-02 14:42 | disposition home or self-care (01) ==
PROVIDERS: Emergency Provider Nurse Practitioner Family; PCP Physician Assistant
DX: R42 Dizziness and giddiness (principal); R20.2 Paresthesia of skin
CPT/HCPCS: 36415; 80053; 93005; 99283; 83735; 84484; 85025; 85379; 93010

== ENCOUNTER 2021-05-11 10:31 | Outpatient (CLI) | payer MEDICARE, SELFPAY | END 2021-05-11 10:32 | LOC: CARDO 06-08 11:46 | PROVIDERS: PCP Physician Assistant; Visit Provider Internal Medicine Cardiovascular Disease | DX: R42 Dizziness and giddiness (principal) | CPT/HCPCS: 93248 ==

== ENCOUNTER → 2021-06-03 14:49 | Outpatient (BNVA) | payer MEDICARE, SELFPAY | PROVIDERS: PCP Physician Assistant; Referring Provider Physician Assistant; Visit Provider Psychiatry & Neurology Neurology | DX: R42 Dizziness and giddiness (principal); I10 Essential (primary) hypertension | CPT/HCPCS: 99213 ==

== ENCOUNTER → 2021-06-22 04:06 | Outpatient (CLI) | payer MEDICARE, SELFPAY ==
--- NOTE | 2021-06-22 14:45 | DI.MRI_ITS ---
Exam(s) MR BRAIN WO EXAM: MR BRAIN WO CLINICAL HISTORY: DIZZINESS, R42 TECHNIQUE: Multiplanar multisequence MRI of the brain was performed. COMPARISON: CT HEAD WITHOUT STROKE PROTOCOL from 10/06/2015 FINDINGS: VENTRICLES AND EXTRA AXIAL SPACES: Normal in size and morphology for the patient's age. Note is made of a cavum septum pellucidum. MIDLINE SHIFT: None. CEREBRAL PARENCHYMA: No focus of restricted diffusion to suggest acute infarct. No space-occupying le joselo identified. HEMORRHAGE: None. BRAINSTEM/CEREBELLUM: Normal. CALVARIUM: Normal. VISUALIZED PARANASAL SINUSES/MASTOIDS:Clear. LIME OF [place]: Normal flow void. PITUITARY GLAND: Unremarkable. OTHER FINDINGS: None. IMPRESSION: No acute intracranial process. DATA REPOSITORY:
== END ==
PROVIDERS: PCP Physician Assistant; Visit Provider Physician Assistant
DX: R42 Dizziness and giddiness (principal)
CPT/HCPCS: 70551

== ENCOUNTER → 2021-07-21 02:10 | Outpatient (CLI) | payer MEDICARE, SELFPAY ==
--- NOTE | 2021-07-21 07:00 | DI.US_ITS ---
Exam(s) US CAROTID EXAM: US CAROTID CLINICAL HISTORY: DIZZINESS, R42 TECHNIQUE: Ultrasound performed using standard protocol. COMPARISON: No exams were available for comparison FINDINGS: Duplex evaluation of the carotid circulation was performed according to the usual protocol including 2D and Doppler flow evaluation. There is mild visible atheromatous plaque in carotid bulbs bilateral ly. Flow velocities are within normal limits throughout the visualized common, internal, and externa l carotid arteries. There is bilateral antegrade vertebral flow noted. IMPRESSION: No evidence of a hemodynamically significant carotid stenosis. DATA REPOSITORY:
== END ==
PROVIDERS: PCP Physician Assistant; Visit Provider Physician Assistant
DX: R42 Dizziness and giddiness (principal); I70.8 Atherosclerosis of other arteries
CPT/HCPCS: 93880

== ENCOUNTER 2021-09-10 02:43 | Outpatient (CLI) | payer MEDICARE, SELFPAY ==
[2021-09-10 22:31] LABS: PSA, Diagnostic 1.1 ng/mL (<=4.5)
== END 2021-09-10 02:44 | disposition home or self-care (01) ==
LOC: LBO 02:43
PROVIDERS: PCP Physician Assistant; Visit Provider Urology
DX: N40.2 Nodular prostate without lower urinary tract symptoms (principal)
CPT/HCPCS: 36415; 86900; 86901; 84153

== ENCOUNTER → 2021-09-15 09:50 | Outpatient (BNVA) | payer MEDICARE, SELFPAY | PROVIDERS: PCP Physician Assistant; Referring Provider Physician Assistant; Visit Provider Urology | DX: R42 Dizziness and giddiness (principal); N40.2 Nodular prostate without lower urinary tract symptoms | CPT/HCPCS: 99214 ==

== ENCOUNTER 2022-03-08 03:19 | Outpatient (CLI) | payer MEDICARE, SELFPAY ==
[2022-03-09 18:54] LABS: PSA, Diagnostic 1.3 ng/mL (<=6.5)
== END 2022-03-08 03:20 | disposition home or self-care (01) ==
LOC: LBO 03:19
PROVIDERS: PCP Physician Assistant; Visit Provider Urology
DX: N40.2 Nodular prostate without lower urinary tract symptoms (principal)
CPT/HCPCS: 36415; 84153

== ENCOUNTER → 2022-03-16 09:49 | Outpatient (BNVA) | payer MEDICARE, SELFPAY | PROVIDERS: PCP Physician Assistant; Referring Provider Physician Assistant; Visit Provider Urology | DX: N40.2 Nodular prostate without lower urinary tract symptoms (principal) | CPT/HCPCS: 99213 ==

== ENCOUNTER 2022-08-02 11:38 | Outpatient (REF) | payer MEDICARE, SELFPAY ==
[2022-08-02 16:48] LABS: Anion Gap 7.3 mmol/L (3-11); BUN 10 mg/dL (7-18); CO2 29.7 mmol/L (21.0-32.0); CREATININE 0.9 mg/dL (0.70-1.30); Calcium 9.1 mg/dL (8.5-10.1); Calculated LDL 134 mg/dL (<100); Chloride 106 mmol/L (98-107); Cholesterol 213 mg/dL (<200); Estimated GFR 91.88 (mL/min/1.73m2); Glucose 84 mg/dL (74-106); HDL Cholesterol 62 mg/dL (40-60); Potassium 4.1 mmol/L (3.5-5.1); Sodium 143 mmol/L (136-145); Triglyceride 89 mg/dL (<150)
== END 2022-08-02 11:39 | disposition home or self-care (01) ==
LOC: NCHCN 11:38
PROVIDERS: PCP Physician Assistant; Visit Provider Physician Assistant
DX: E78.5 Hyperlipidemia, unspecified (principal)
CPT/HCPCS: 80048; 80061

== ENCOUNTER → 2022-08-03 09:54 | Outpatient (BNVA) | payer MEDICARE, SELFPAY | PROVIDERS: PCP Physician Assistant; Referring Provider Physician Assistant; Visit Provider Psychiatry & Neurology Neurology | DX: R42 Dizziness and giddiness (principal); I10 Essential (primary) hypertension | CPT/HCPCS: 99214 ==

== ENCOUNTER 2022-09-02 03:17 | Outpatient (CLI) | payer MEDICARE, SELFPAY ==
[2022-09-02 22:19] LABS: PSA, Diagnostic 1.1 ng/mL (<=6.5)
== END 2022-09-02 03:18 | disposition home or self-care (01) ==
LOC: LBO 03:17
PROVIDERS: PCP Physician Assistant; Visit Provider Urology
DX: N40.2 Nodular prostate without lower urinary tract symptoms (principal)
CPT/HCPCS: 36415; 84153

== ENCOUNTER → 2022-09-07 08:11 | Outpatient (BNVA) | payer MEDICARE, SELFPAY | PROVIDERS: PCP Physician Assistant; Visit Provider Urology | DX: N40.2 Nodular prostate without lower urinary tract symptoms (principal) | CPT/HCPCS: 99213 ==

== ENCOUNTER → 2022-10-12 10:53 | Outpatient (BNVA) | payer MEDICARE, SELFPAY | PROVIDERS: PCP Physician Assistant; Visit Provider Psychiatry & Neurology Neurology | DX: R42 Dizziness and giddiness (principal) | CPT/HCPCS: 99214 ==

== ENCOUNTER 2023-03-02 18:41 | Outpatient (CLI) | payer MEDICARE, SELFPAY ==
[2023-03-02 22:35] LABS: PSA, Diagnostic 1.4 ng/mL (<=6.5)
== END 2023-03-02 18:42 | disposition home or self-care (01) ==
LOC: LBO 18:42
PROVIDERS: PCP Physician Assistant; Visit Provider Urology
DX: N40.2 Nodular prostate without lower urinary tract symptoms (principal)
CPT/HCPCS: 36415; 84153

== ENCOUNTER → 2023-03-08 08:27 | Outpatient (BNVA) | payer MEDICARE, SELFPAY | PROVIDERS: PCP Physician Assistant; Referring Provider Physician Assistant; Visit Provider Urology | DX: R35.1 Nocturia (principal) | CPT/HCPCS: 99214 ==

== ENCOUNTER → 2023-04-18 04:23 | Outpatient (CLI) | payer MEDICARE, SELFPAY ==
--- NOTE | 2023-04-18 11:19 | DI.RAD_ITS ---
Exam(s) XR LUMBAR SPINE COMPLETE EXAM: XR LUMBAR SPINE COMPLETE CLINICAL HISTORY: LOW BACK PAIN, M54.50,LOW EXTREM FATIGUE. TECHNIQUE: 2D digital imaging was performed of the lumbar spine. Five images were obtained. AP, la teral, right oblique, left oblique and L5-S1 spot views were obtained. COMPARISON: No exams were available for comparison FINDINGS: BONES: No fracture or destructive lesion. There are endplate osteophytes at multiple levels of the marta mbar spine particularly at L3-L4. There are degenerative changes of the facets at L5-S1. DISKS: Intervertebral disc spaces are maintained. ALIGNMENT: Lumbar spinal alignment is within normal limits. No spondylolysis or spondylolisthesis. SOFT TISSUE: Vascular calcifications are present. IMPRESSION: Degenerative changes are seen in the lumbar spine. DATA REPOSITORY: RADIATION DOSE DELIVERED:
== END ==
PROVIDERS: PCP Physician Assistant; Visit Provider Physician Assistant
DX: M51.36 Other intervertebral disc degeneration, lumbar region (principal)
CPT/HCPCS: 72110

== ENCOUNTER 2023-06-29 10:40 | Outpatient (REF) | payer MEDICARE, SELFPAY ==
[2023-06-29 13:48] LABS: HCT 46.3 % (40.0-50.0); HGB 15.9 g/dL (13.5-17.5); MCH 29.8 pg (27.0-33.0); MCHC 34.3 % (32.0-36.0); MCV 87 fL (80-95); MPV 11.2 fL (8.0-11.0); Platelet Count 248 10^3/uL (130-400); RBC 5.34 10^6/uL (4.36-5.78); RDW 13.3 % (11.8-14.1); RDW-SD 42.2 fL; WBC 7.72 10^3/uL (4.4-10.8)
[2023-06-29 14:12] LABS: ALT 67 U/L (16-63); AST 52 U/L (15-37); Albumin 4.1 g/dL (3.4-5.0); Alkaline Phosphatase 78 U/L (46-116); Anion Gap 7.7 mmol/L (3-11); BUN 14 mg/dL (7-18); Bilirubin, Total 0.8 mg/dL (0.2-1.0); CO2 30.3 mmol/L (21.0-32.0); CREATININE 0.8 mg/dL (0.70-1.30); Calcium 9.6 mg/dL (8.5-10.1); Calculated LDL 170 mg/dL (<100); Chloride 104 mmol/L (98-107); Cholesterol 250 mg/dL (<200); Estimated GFR 94.62 (mL/min/1.73m2); Glucose 90 mg/dL (74-106); HDL Cholesterol 67 mg/dL (40-60); Magnesium 2.3 mg/dL (1.8-2.4); Potassium 4.3 mmol/L (3.5-5.1); Sodium 142 mmol/L (136-145); Total Protein 6.6 g/dL (6.4-8.2); Triglyceride 65 mg/dL (<150)
== END 2023-06-29 10:41 | disposition home or self-care (01) ==
LOC: NCHCN 10:40
PROVIDERS: PCP Physician Assistant; Visit Provider Physician Assistant
DX: E78.5 Hyperlipidemia, unspecified (principal); R42 Dizziness and giddiness
CPT/HCPCS: 80053; 80061; 85027; 83735

== ENCOUNTER 2023-08-30 11:37 | Outpatient (CLI) | payer MEDICARE, SELFPAY ==
[2023-08-30 19:35] LABS: PSA, Diagnostic 1.5 ng/mL (<=6.5)
== END 2023-08-30 11:38 | disposition home or self-care (01) ==
LOC: LBO 11:37
PROVIDERS: PCP Physician Assistant; Visit Provider Urology
DX: N40.2 Nodular prostate without lower urinary tract symptoms (principal)
CPT/HCPCS: 36415; 84153

== ENCOUNTER → 2023-09-06 08:19 | Outpatient (BNVA) | payer MEDICARE, SELFPAY | PROVIDERS: PCP Physician Assistant; Visit Provider Urology | DX: N40.2 Nodular prostate without lower urinary tract symptoms (principal) | CPT/HCPCS: 99213 ==

== ENCOUNTER → 2023-09-12 02:43 | Outpatient (CLI) | payer MEDICARE, SELFPAY ==
--- NOTE | 2023-09-12 | DI.MRI_ITS ---
Exam(s) MR LUMBAR SPINE WO EXAM: MR LUMBAR SPINE WO CLINICAL HISTORY: M54.50 Low back pain, unspecified; Progressive chronic LBP w/weakness in. TECHNIQUE: Multiplanar multisequence MRI of the Lumbar spine was performed. COMPARISON: CR XR LUMBAR SPINE COMPLETE from 04/18/2023 FINDINGS: Conus medullaris is at normal level. There is no evidence of conus mass nor subjacent clumping of in trathecal nerve roots to suggest arachnoiditis. The distal thecal sac appears unremarkable.There is no evidence of Tarlov intrasacral cysts nor other significant findings within the sacral canal Bones:There are no fractures nor ominous osseous lesions in the lumbar vertebral bodies and visualize d sacrum. Multilevel shallow benign Schmorl's nodes noted at endplates involving T12, L1, L2, and L3 vertebral bodies. These are not acute or subacute appearing With respect to the individual levels... T12-L1: Unremarkable L1-2: Normal disc height and signal. No disc herniation nor central canal stenosis.No foraminal steno sis L2-3: Normal disc height. No disc herniation nor central canal stenosis.No foraminal stenosis.No face t arthropathy. L3-4: There is some disc height loss on the right side of the disc space and there are anterior osteo phytes on the anterior right side of this disc space. Posteriorly there is mild annular bulging into the floor of the exiting right neural foramen. Central canal dimensions are lower normal. There is no significant foraminal stenosis on either side at this level. Facet joints unremarkable. L4-5: Normal disc height and signal. No disc herniation. Mild symmetrical annular bulging which lawler s not extend into the exiting neural foramina. Central canal dimensions are lower normal. There is no foraminal stenosis evident at this level. Minimal degenerative changes in the facet joints eviden t L5-S1: This level exhibits mild uniform disc space narrowing. Posteriorly there is mild annular bulg ing and posterior osteophytic ridging without a dominant disc herniation and no central canal stenosi s. Also no significant foraminal stenosis evident at this level. Some degenerative change noted at left facet joint this level. Right facet joint appears unremarkable. Soft tissues: Benign cortical cysts are noted in the right kidney and parapelvic cysts are noted in the left kidney. IMPRESSION: 1. Mild findings as described above. 2. No dominant disc herniation nor significant central canal stenosis nor significant foraminal steno sis. 3. Only mild facet joint degenerative changes DATA REPOSITORY:
== END ==
PROVIDERS: PCP Physician Assistant; Visit Provider Physician Assistant
DX: M54.50 Low back pain, unspecified (principal)
CPT/HCPCS: 72148

== ENCOUNTER 2023-09-13 04:52 | Outpatient (CLI) | payer MEDICARE, SELFPAY ==
[2023-09-13 09:02] LABS: ESR 2 mm/hr (0-20)
[2023-09-13 09:43] LABS: C-Reactive Protein < 0.50 mg/dL (<or=0.5)
[2023-09-13 18:08] LABS: Rheumatoid Factor <8.6 IU/mL (<12.0)
[2023-09-14 09:27] LABS: Cyclic Citrullinated Peptide <2.5 U/mL (<5.0)
[2023-09-14 14:26] LABS: ANA Interpretation Negative (Negative)
[2023-09-14 15:51] LABS: dsDNA Ab, IgG 26.2 IU/mL (<27.0)
== END 2023-09-13 04:53 | disposition home or self-care (01) ==
LOC: LBO 04:52
PROVIDERS: PCP Physician Assistant; Visit Provider Physician Assistant
DX: M54.50 Low back pain, unspecified (principal)
CPT/HCPCS: 36415; 85652; 86200; 86038; 86140; 86225; 86431

== ENCOUNTER 2023-11-24 15:37 | Outpatient (REF) | payer MEDICARE, SELFPAY ==
[2023-11-24 15:50] LABS: HCT 47.6 % (40.0-50.0); HGB 16.6 g/dL (13.5-17.5); MCH 29.5 pg (27.0-33.0); MCHC 34.9 % (32.0-36.0); MCV 85 fL (80-95); MPV 11.1 fL (8.0-11.0); Platelet Count 282 10^3/uL (130-400); RBC 5.62 10^6/uL (4.36-5.78); RDW 13.4 % (11.8-14.1); RDW-SD 41.6 fL; WBC 10.92 10^3/uL (4.4-10.8)
[2023-11-24 16:16] LABS: ALT 98 U/L (16-63); AST 59 U/L (15-37); Albumin 3.9 g/dL (3.4-5.0); Alkaline Phosphatase 101 U/L (46-116); Anion Gap 6.6 mmol/L (3-11); BUN 10 mg/dL (7-18); Bilirubin, Total 0.84 mg/dL (0.2-1.0); CO2 30.4 mmol/L (21.0-32.0); CREATININE 0.8 mg/dL (0.70-1.30); Calcium 9.5 mg/dL (8.5-10.1); Chloride 102 mmol/L (98-107); Estimated GFR 94.62 (mL/min/1.73m2); FREE T4 1.05 ng/dL (0.76-1.46); Glucose 102 mg/dL (74-106); Potassium 4.1 mmol/L (3.5-5.1); Sodium 139 mmol/L (136-145); TSH 1.16 uIU/Ml (0.36-3.74); Total Protein 6.6 g/dL (6.4-8.2)
[2023-11-24 17:08] LABS: Vitamin B12 969 pg/mL (193-986)
[2023-11-28 13:23] LABS: Albumin 63.3 % (55.8-66.1); Albumin g/dL 4.2 g/dL (3.6-5.2); Total Protein 6.6 g/dL (6.3-8.2)
[2023-11-28 15:19] LABS: Albumin, Urine % 48.1 %; Albumin, Urine mg/dL 7 mg/dL; Globulins, Urine % 51.9 %; Globulins, Urine mg/dL 7 mg/dL; Immunotyping, Urine (See Note); Total Protein Urine 14 mg/dL (See Note)
== END 2023-11-24 15:38 | disposition home or self-care (01) ==
LOC: NCHCN 15:37
PROVIDERS: PCP Physician Assistant; Visit Provider Physician Assistant
DX: R63.4 Abnormal weight loss (principal)
CPT/HCPCS: 80053; 84156; 84166; 85027; 86335; 82607; 84165; 84439; 84443

== ENCOUNTER → 2023-12-08 08:50 | Outpatient (BNVA) | payer MEDICARE, SELFPAY | PROVIDERS: PCP Physician Assistant; Referring Provider Physician Assistant; Visit Provider Urology | DX: K40.90 Unilateral inguinal hernia, without obstruction or gangrene, not specified as recurrent (principal) | CPT/HCPCS: 99213 ==

== ENCOUNTER → 2024-01-03 08:27 | Outpatient (BNVA) | payer MEDICARE, SELFPAY | PROVIDERS: PCP Physician Assistant; Referring Provider Physician Assistant; Visit Provider Surgery | DX: K46.9 Unspecified abdominal hernia without obstruction or gangrene (principal) | CPT/HCPCS: 99213 ==

== ENCOUNTER 2024-01-04 12:30 | Outpatient (REF) | payer MEDICARE, SELFPAY ==
[2024-01-04 15:11] LABS: ALT 58 U/L (16-63); AST 48 U/L (15-37); Albumin 3.7 g/dL (3.4-5.0); Alkaline Phosphatase 87 U/L (46-116); Anion Gap 6.8 mmol/L (3-11); BUN 10 mg/dL (7-18); Bilirubin, Total 0.79 mg/dL (0.2-1.0); CO2 29.2 mmol/L (21.0-32.0); CREATININE 0.7 mg/dL (0.70-1.30); Calcium 9.5 mg/dL (8.5-10.1); Chloride 107 mmol/L (98-107); Glucose 114 mg/dL (74-106); Potassium 4.1 mmol/L (3.5-5.1); Sodium 143 mmol/L (136-145); Total Protein 6.5 g/dL (6.4-8.2)
== END 2024-01-04 12:31 | disposition home or self-care (01) ==
LOC: NCHCN 12:30
PROVIDERS: PCP Physician Assistant; Visit Provider Physician Assistant
DX: E78.5 Hyperlipidemia, unspecified (principal)
CPT/HCPCS: 80053

== ENCOUNTER 2024-01-05 03:01 | Outpatient (CLI) | payer MEDICARE, SELFPAY ==
--- NOTE | 2024-01-05 10:47 | DI.RAD_ITS ---
Exam(s) XR CHEST 2V PA LATERAL EXAM: XR CHEST 2V PA LATERAL CLINICAL HISTORY: ABNL WT LOSS,R63.4 TECHNIQUE: 2D digital imaging was performed of the chest. Two images were obtained. PA and lateral views were obtained. COMPARISON: CR CHEST 2 VIEWS PA,LAT from 10/06/2015 FINDINGS: MEDIASTINUM: Normal. HEART: Normal. PULMONARY VASCULATURE: Normal. LUNGS: Clear. PLEURAL SPACE: No pleural effusion or pneumothorax. BONE:Within normal limits for the patient's age. OTHER FINDINGS:Normal. IMPRESSION: No acute pulmonary findings. DATA REPOSITORY: RADIATION DOSE DELIVERED:
== END 2024-01-05 03:21 ==
LOC: DI 03:01
PROVIDERS: PCP Physician Assistant; Visit Provider Physician Assistant
DX: R63.4 Abnormal weight loss (principal)
CPT/HCPCS: 71046

== ENCOUNTER 2024-01-11 08:10 | Day surgery (SDC) | payer MEDICARE, SELFPAY ==
--- NOTE | 2024-01-10 17:55 | W.PM.DSUDISC ---
Date of service: 01/11/24 Time of Service: 09:57 Discharge Plan Disposition Patient Disposition: Home Condition: Good Discharge Details Reason For Visit: right inguinal hernia repair Attending Provider: Marcelino Silva Primary Care Provider: Duong Gomez Home Meds and New Rx's Prescriptions: New tramadol 50 mg tablet 50 mg PO Q8H PRNQty: 12 0RF Rx Instructions: Take 1 tablet by mouth up to every 8 hours if needed for more severe pain. polyethylene glycol 3350 [Miralax] 17 gram/dose powder 17 g PO DAILY Qty: 119 0RF Rx Instructions: Use as needed for constipation symptoms Continued cyclosporine [Restasis] 0.05 % dropperette 1 drp ophthalmic (eye) Q12H mecobalamin (vitamin B12) 1,000 mcg tablet,chewable 1,000 mcg PO DAILY methylphenidate HCl 10 mg tablet 10 mg PO DAILY acetaminophen 500 mg capsule 500 mg PO Q6H PRN fluticasone propionate [Flonase Allergy Relief] 50 mcg/actuation spray,suspension 2 spray intranasal DAILY 30 Days Qty: 16 4RF Rx Instructions: administer into each nostril atorvastatin 40 mg tablet 40 mg PO DAILY amlodipine [Norvasc] 5 mg tablet 5 mg PO HS Discharge Instructions Instructions: Groin Hernia Repair (DC) Additional Instructions: Philip, was great seeing you and your today, and I hope you make a quick and uneventful recovery from this operation. Things went very smoothly. Technically speaking, you had a direct inguinal hernia. This does not impact the repair very much, but in case you come across it in any of the medical records that just refers to the exact nature or location of where the hernia originates from. We were able to get everything pushed back into its normal place, and then patch the hole just like we talked about beforehand with permanent mesh material. Hopefully this will provide a durable and comfortable repair for years to come. Expect to have some increased pain over the next few days as some of the nerve blocks wear off. Ice packs are often times very helpful in these first few days. You should be up and moving around a little bit more more each day. Walking, and some light exercise is a great way to help move the recovery along. Avoid lifting anything more than a gallon of milk until we see each other in the office, and then will adjust if needed. Do not be alarmed if the area bruises. It is quite common, and can often times extend all around the incision and even down into the scrotum. I would like to know, however, if the skin starts turning bright red, or if there is any drainage from the wound that seems milk or yogurt like. I do not expect any of that to happen, but it is something to be thoughtful of. You can start washing the incisions with warm soapy water as early as tomorrow. I went ahead and placed a prescription for stronger pain medication if you need it, and I also added a prescription for MiraLAX (which can also be purchased [id number]) if needed to help prevent any constipation type symptoms. If you have any questions, or need anything at all please do not hesitate to call, otherwise I look forward to seeing you in the office in follow-up. 1. Resume all of your regular medications. 2. Alternate heating pads and ice packs every 15 mintues to help with pain. 3. Alternate over the counter tylenol and ibuprofen every 6 hours for the first two days, then use as needed. Use the prescription for tramadol if needed for more severe pain. 4. Leave bandage in place for 24 hours, then remove. 5. Shower with warm soapy water. Pat dry. Use a bandaid if needed to protect your clothing. 6. No soaking or tub baths until I see you in the office. 7. No heavy lifting until I see you in the office. 8. Call the office (or go directly to the emergency room after hours) if you notice any of the following: Develop chills (warm to touch), or if you have a thermometer and your temperature is above 101 Difficulty breathing or difficultly swallowing Persistent vomiting Any bleeding ? exceeding one tablespoon 9. Call your physician if the site where your intravenous was started becomes red, swollen, painful, and warm to touch. Activity:: no heavy lifting Remove Dressings/Wound Care:: 24 hours Shower/Bathe:: 24 hours Diet:: As Tolerated Discharge Orders Discharge Orders: Discharge Order (Routine); Ordered 01/10/24 Ordered By: Marcelino Silva DS: Diagnosis Discharge Diagnosis (1) Right inguinal hernia: Status: Acute Asessment and Plan: Outpatient postoperative follow-up
--- NOTE | 2024-01-10 17:58 | W.PM.OP ---
Date of service: 01/11/24 Time of Service: 10:02 Operative Note Operative Note DATE OF PROCEDURE: 01/11/24 PRE-OP DIAGNOSIS: right inguinal hernia POST-OP DIAGNOSIS: other (Right-sided direct inguinal hernia) PROCEDURE: Open right inguinal hernia repair with mesh SURGEON: Marcelino Silva [employer]EN[employer] CASTING MACHINE TENDER: Lexus Pelletier ANESTHESIA TYPE: Local By Surgeon, General LMA/ETT and Other (inguinal TAP block) Refer to Anesthesia Record ESTIMATED BLOOD LOSS: 20 PATHOLOGY: none sent COMPLICATIONS: None Patient was transported to: PACU Patient's condition: stable Implants: Bard PerFix light large plug and patch Indications: Philip is a 73-year-old male with a symptomatic right inguinal hernia Findings: Right-sided direct inguinal hernia Procedure Description: I began by confirming the correct site with the patient in the preoperative area. This was marked, and Philip was moved back into the operating room and assisted onto the table taking great care to make sure that he was padded and supported appropriately. General anesthesia was started. Next, the anesthesia team provided a right-sided inguinal tap block with ultrasound guidance. The surgical site was then prepped and draped in the usual fashion. I began by making an oblique incision over the right inguinal region. I dissected down through the skin to the deep fascia. Next, I incised the fascia along the length of the inguinal canal to the external ring. I then carefully identified the ilioinguinal nerve and sharply divided. Once this was complete, I bluntly dissected the shelving edge of the inguinal ligament down towards the pubic tubercle. Here, I encircled all cord structures with a [place] drain. Next, I began dissecting the specific cord structures. It was clear at this point that this was a right-sided direct inguinal hernia arising from the posterior wall of the inguinal canal. great care was taken to spare the vas deferens and the blood supply to the testicle as the surrounding soft tissues were dissected free. Next, the preperitoneal and peritoneal structures were gently reduced back towards the abdomen and pelvis. A large mesh plug was used to buttress this, and the anterior soft tissues were pexied back together holding the plug in place. Next, I recreated the posterior wall of the inguinal canal using a sheet of mesh tailored to fit. I started by fixing it to the pubic tubercle. Next, I used Prolene sutures to affix it to the shelving edge of the inguinal ligament and the conjoined tendon. Laterally I tacked it to the external oblique fascia and reconstructed an internal ring without any strain on the cord structures. Once this was complete, I irrigated the surgical field. It appeared hemostatic. I then closed the anterior portion of the fascia to reconstruct the front wall of the inguinal canal. I did this with Vicryl stitches. Once again, I irrigated the surgical field and inspected for hemostasis. Finally, I approximated the superficial fascia and the deep layers of the skin with absorbable suture. Skin was closed with running subcuticular stitches. Bandages were applied, the patient was awakened and transferred to the recovery unit.
[2024-01-11] VITALS (27 sets, daily range): BP systolic 126–159; BP diastolic 74–99; PULSE 58–76; RESP 15–22; TEMP 36.3–36.8; O2SAT 96–100; BMI 21.9
--- NOTE | 2024-01-11 06:29 | W.ANESPRE ---
General Info Date of Service Date Performed: 01/11/24 Height: 5 ft 7.5 in Weight: 64.41 kg Body Mass Index (BMI): 21.9 Surgical Procedure: Operation Date: 01/11/24 09:25 Proposed Procedure Side Surgeon p Herniorrhaphy Inguinal w/Mesh Right Marcelino Silva MD Meds Allergies and Home Medications Allergies Allergy/AdvReac Type Severity Reaction Status Date / Time No Known Allergies Allergy Verified 01/10/24 10:32 Home Medication ?Medication ?Instructions ?Recorded fluticasone propionate 50 2 spray intranasal DAILY 30 days 12/02/20 mcg/actuation nasal #16 grams spray,suspension (Flonase Allergy Relief) atorvastatin 40 mg tablet 40 mg PO DAILY 09/06/23 cyclosporine 0.05 % eye drops in a 1 drp ophthalmic (eye) Q12H 10/07/23 dropperette (Restasis) acetaminophen 500 mg capsule 500 mg PO Q6H PRN 10/19/23 mecobalamin (vitamin B12) 1,000 1,000 mcg PO DAILY 10/19/23 mcg chewable tablet methylphenidate HCl 10 mg tablet 10 mg PO DAILY 10/19/23 amlodipine 5 mg tablet (Norvasc) 5 mg PO HS 01/03/24 Current Visit Medications: Current Medications Generic Name Dose Route Start Last Admin Trade Name Freq PRN Reason Stop Dose Admin Acetaminophen 1,000 mg 01/11/24 06:00 Acetaminophen 500 Mg Tab PO 01/11/24 23:59 PREOP MARKY Celecoxib 200 mg 01/11/24 06:00 Celecoxib 200 Mg Cap PO 01/11/24 23:59 PREOP MARKY Gabapentin 600 mg 01/11/24 06:00 Gabapentin 300 Mg Cap PO 01/11/24 23:59 PREOP MARKY Hydromorphone HCl 0.2 mg 01/10/24 17:59 Hydromorphone 1 Mg/Ml Syr IVP 02/09/24 17:58 Q1H PRN PRN Ringer's Solution 500 mls @ 30 mls/hr 01/11/24 08:15 IV 02/10/24 08:14 INFUSION PENDING SALE TO [facility] IV Miscellaneous Supplies 1 each 01/11/24 06:00 Iv Access IV 01/11/24 23:59 DIRECTED MARKY Sodium Chloride 0 ml 01/11/24 06:00 Normal Saline Flush 10 Ml Syr IV 01/11/24 23:59 PRN PRN Sodium Chloride 0 ml 01/11/24 06:00 Normal Saline 10 Ml Vial IJ 01/11/24 23:59 DIRECTED PRN Sterile Water 0 ml 01/11/24 06:00 Water,Injection,Sterile 10 Ml Vial IJ 01/11/24 23:59 DIRECTED PRN Tramadol HCl 50 mg 01/10/24 17:59 Tramadol 50 Mg Tab PO 02/09/24 17:58 Q6H PRN PRN Pain PFSH Active Problems Active Problems: Problem Status Onset Code Right inguinal hernia Acute K40.90 Lumbar spondylosis Acute M47.816 Hand muscle weakness Acute M62.81 Impacted cerumen, bilateral Acute H61.23 Wears hearing aid in both ears Acute Z97.4 Lightheadedness Acute R42 Chronic rhinitis Acute J31.0 Postnasal drip Acute R09.82 Crackling sound in both ears Acute H93.8X3 Unable to pass flatus Acute R14.0 Sensorineural hearing loss of both ears Acute H90.3 Middle ear effusion Acute H65.90 Squamous cell skin cancer Acute C44.92 Skin lesion Acute L98.9 Diverticulitis of large intestine with abscess without bleeding Acute 05/16/15 K57.20 Prostatitis Acute 01/31/12 N41.9 Diverticulitis of colon Acute K57.32 Basal cell carcinoma of face Acute C44.310 Status post cataract extraction and insertion of intraocular lens of left eye Acute 02/06/18 Z98.42, Z96.1 Prostate nodule Acute 05/16/15 N40.2 Hyperlipidemia Acute E78.5 Essential hypertension Acute 03/22/13 I10 Diastasis recti Acute 06/30/16 M62.08 Cervical radiculopathy Acute 06/30/16 M54.12 Cataract Acute 01/31/12 H26.9 Actinic keratosis Acute 05/16/15 L57.0 Medical History Medical History (Updated 01/10/24 @ 10:31 by Joon Mitchell) Bilateral hearing loss Obstructive sleep apnea syndrome Chest pain Per pt and got it worked up ended up being nothing. (2019) Dizziness and giddiness Low back pain Cobalamin deficiency Nuclear sclerotic cataract of left eye Posterior subcapsular age-related cataract of left eye Diverticulitis large intestine Hypertension Hyperlipidemia Surgical History Surgical History History of colonoscopy History of basal cell carcinoma excision History of eye surgery Tobacco Smoking/Tobacco Use Status: Never Passive smoking exposure: Yes Second hand exposure: Yes Alcohol Alcohol Intake: former Substance Use Substance use: Never Substance use type: does not use Vital Signs and Lab Results Vital Signs Most Recent Vital Signs in EMR: Temp Pulse Resp Pulse Ox 36.3 C L 70 18 99 01/11/24 08:42 01/11/24 08:42 01/11/24 08:42 01/11/24 08:42 Lab Results Blood Type / Crossmatch: No Data to Display Complete Blood Count: No Data to Display Complete Metabolic Panel: Sodium 143 mmol/L (136-145) 01/04/24 09:10 Potassium 4.1 mmol/L (3.5-5.1) 01/04/24 09:10 Chloride 107 mmol/L (98-107) 01/04/24 09:10 Carbon Dioxide 29.2 mmol/L (21.0-32.0) 01/04/24 09:10 BUN 10 mg/dL (7-18) 01/04/24 09:10 Creatinine 0.7 mg/dL (0.70-1.30) 01/04/24 09:10 Est GFR (CKD-EPI 2020) 97.90 (mL/min/1.73m2) 01/04/24 09:10 Calcium 9.5 mg/dL (8.5-10.1) 01/04/24 09:10 Albumin 3.7 g/dL (3.4-5.0) 01/04/24 09:10 Glucose 114 mg/dL (74-106) H 01/04/24 09:10 Liver Function Panel: Alanine Aminotransferase (ALT/SGPT) 58 U/L (16-63) 01/04/24 09:10 Aspartate Amino Transf (AST/SGOT) 48 U/L (15-37) H 01/04/24 09:10 Coagulation Panel: No Data to Display Cardiac Panel: No Data to Display Arterial Blood Gas: No Data to Display Venous Blood Gas: No Data to Display Pancreas Panel: No Data to Display Thyroid Panel: No Data to Display Infectious Disease: No Data to Display Blood Cultures: No Data to Display Toxicology Panel: No Data to Display Anesthesia Assessment and Plan Anesthesia History Personal History: No History of Anesthesia Complications Family History: No Family History of Anesthesia Complications Exercise Tolerance Exercise Tolerance: Metabolic Equivalents>4 Cardiac & Pulmonary Exam Cardiac Exam: Normal S1/S2 Heart Sounds Pulmonary Exam: Clear Bilateral Breath Sounds Implantable Cardiac Device Does patient have a Pacemaker or an ICD?: No Airway Exam Known Difficult Airway: No Mallampati Class: 1 Mouth Opening: Normal (> 3cm) Thyromental Distance: Greater than 3 cm Neck Range of Motion: Full ROM Neck Circumference: Normal Teeth Condition: Normal Dentition ASA Classification ASA Score: ASA 2 Emergency Case?: No NPO Status NPO Status: NPO Clears >2 hours, Solids >8 hours Anesthesia Plan Resuscitation Status: Full Code Anesthesia Technique: General Anesthesia Airway Planned: LMA Pain Management: Surgeon and patient request nerve block Monitors Used: Standard Monitors Preoperative Comments:: 73 yo male for hernia repair. Sig PMHx: HTN (amlodipine. checks it at home, very well controlled), LICO (uses CPAP), post nasal drip (no factor today), low back pain (has been making it difficult to walk lately due to pain), dizziness. never smoker. EKG: sinus. Stress: normal perfusion, EF 66% carotid US: no sig stenosis. Previous Anes: - cat, MKO, no issues.
[2024-01-11] MEDS: Gabapentin 300 MG CAP 600 MG PO (08:24)
[2024-01-11] MEDS: Celecoxib 200 MG CAP PO (08:24)
[2024-01-11] MEDS: Acetaminophen 500 MG TAB 1000 MG PO (08:24)
[2024-01-11] MEDS: Normal Saline Flush 10 ML SYR IV ×2 (08:32→10:53)
[2024-01-11] MEDS: ceFAZolin 2 GM/50 ML BAG 50 GM (09:05)
--- NOTE | 2024-01-11 09:19 | W.ANESNERVE ---
Nerve Block Single Injection Procedure Date and Time Date Performed: 01/11/24 Procedure Start: 09:06 Location Where Procedure Performed Procedure Location: Operating Room Procedure Stop: 09:10 Reason Performed: Postoperative Analgesia Requesting Provider: Marcelino Silva Timeout Performed Timeout Performed: Yes Monitoring Used ECG, Blood Pressure and SpO2 Sterility Sterility: Hand Hygiene, Surgical Cap, Surgical Mask, Sterile Gloves, Sterile Drape/Sheet and Chlorhexidine Sedation Given During Procedure Sedation Given (Indicate Dose Given): No Sedation given Patient Mental Status Patient Mental Status: Performed under general anesthesia Nerve Block 1st Nerve Block: Laterality: Right Block Type: TAP Unilateral Ultrasound Image Saved?: Yes Needle / Catheter Used: 120mm SonoPlex II Local Anesthetic Bolus (Indicate Dose Given): Bupivacaine 0.25% Dose:: 10 mL Additives (Indicate Dose Given): None Ultrasound: Sterile probe cover and gel used Nerve Stimulator: Not Used Paresthesia: None Procedure Tolerated: No Complications Procedure Outcome: Successful Performed By: Rancho Acosta
[2024-01-11] MEDS: Bupivacaine 0.5% Pres-Free W/EPI 30 ML VIAL (09:26)
--- NOTE | 2024-01-11 10:23 | W.ANESPOSTOP ---
Postoperative Evaluation Date, Time and Location Date Performed: 01/11/24 Time Performed: 10:23 Patient Location: PACU Vital Signs Most Recent Imported Vital Signs: Most Recent Vital Signs Temp Pulse Resp BP Pulse Ox 36.5 C 70 18 153/89 H 99 01/11/24 10:21 01/11/24 08:42 01/11/24 08:42 01/11/24 08:42 01/11/24 08:42 Pain Score Most Recent Pain Score: Most Recent Pain Score Pain Level 5 01/11/24 10:21 Assessment Mental Status: Arousable with meaningful communication Airway and Respiratory Function: Patent airway with normal (patient baseline) respiratory exam Cardiovascular Function: Hemodynamically Stable Hydration Status: Adequately Hydrated Nausea & Vomiting: No Nausea or Vomiting Pain: Pain is tolerable per patient Peripheral Nerve Block: Regional nerve block not resolved at time of post operative discharge
[2024-01-11] MEDS: HYDROmorphone 1 MG/ML SYR 0.2 MG IVP (10:53)
== END 2024-01-11 12:28 | disposition home or self-care (01) ==
LOC: SUR 08:10
PROVIDERS: PCP Physician Assistant; Visit Provider Surgery
PROC: (CPT 49505; principal; 2024-01-11 09:15)
DX: K40.90 Unilateral inguinal hernia, without obstruction or gangrene, not specified as recurrent (principal); M47.816 Spondylosis without myelopathy or radiculopathy, lumbar region; E78.5 Hyperlipidemia, unspecified; I10 Essential (primary) hypertension; G89.18 Other acute postprocedural pain
CPT/HCPCS: 49505; 64486; C1781; J0665; J0690; J1100; J1171; J2405; J2704

== ENCOUNTER → 2024-01-24 07:28 | Outpatient (BNVA) | payer MEDICARE, SELFPAY | PROVIDERS: PCP Physician Assistant; Referring Provider Physician Assistant; Visit Provider Surgery | DX: Z48.817 Encounter for surgical aftercare following surgery on the skin and subcutaneous tissue (principal) ==

== ENCOUNTER → 2024-02-07 12:58 | Outpatient (BNVA) | payer MEDICARE, SELFPAY | PROVIDERS: PCP Physician Assistant; Referring Provider Physician Assistant; Visit Provider Surgery | DX: Z48.817 Encounter for surgical aftercare following surgery on the skin and subcutaneous tissue (principal) ==

== ENCOUNTER 2024-02-17 00:21 | Outpatient (CLI) | payer MEDICARE, SELFPAY ==
--- NOTE | 2024-02-17 | DI.CT_ITS ---
Exam(s) CT CHEST/ABD/PEL W EXAM: CT CHEST/ABD/PEL W CLINICAL HISTORY: Persistent unintentional abnl weight loss, R63.4 TECHNIQUE: Imaging Protocol: Axial computed tomography images with coronal and sagittal reformatted images were created and reviewed. Lung Computer Aided Detection (CAD) was utilized. CONTRAST MATERIAL: Intravenous: Omnipaque 350 contrast volume:80 mL Oral: Yes FINDINGS: CHEST: Tracheobronchial tree: Patent where visualized. No evidence of bronchiectasis. Pulmonary parenchyma: No consolidation or dominant measurable mass. No architectural distortion. Visualized thyroid gland: Unremarkable. Mediastinum and Shanna: No dominant adenopathy or fluid collection. The esophagus is unremarkable. Pleura: No effusion or pneumothorax. Heart: The heart is not dilated. Mild three-vessel coronary artery calcification. No pericardial eff usion. Pulmonary arteries: Due to the timing of the bolus, there is insufficient opacification of the periph eral pulmonary arteries for evaluation of pulmonary emboli. No large central pulmonary embolism is p resent. Aorta: Thoracic aorta non-dilated. Atherosclerotic calcification is present. No evidence of dissecti on. Lymph nodes: Within normal limits. Soft tissues: Unremarkable. Bones:Within normal limits for the patient's age. ABDOMEN: Liver: Normal density. No measurable mass. Portal, Superior Mesenteric, and Splenic Veins: Unremarkable. Gallbladder and Biliary Tract: No radiodense calculus or dilation. Pancreas: Normal density, no abnormal calcifications or inflammatory process. Spleen: Normal. Adrenals: No masses seen. Kidneys: Normal size, contour and axis. No radiodense stones or obstructive uropathy. Bilateral simpl e renal cysts. No follow-up is recommended. No suspicious renal masses. Abdominal Aorta: Abdominal portion non-dilated. Atherosclerotic calcification is present. Bowel: There is colonic diverticulosis without evidence of acute diverticulitis. Note is made of a d uodenal diverticulum adjacent to the pancreatic head. No bowel wall thickening or obstruction is shelby ntified. Appendix is unremarkable. Peritoneal Cavity: No ascites, collection or mesenteric inflammatory response. No free air. Lymph Nodes: Within normal limits. Bones: Within normal limits for the patient's age. Soft Tissues: There is a fat containing left inguinal hernia. In the right groin, there is a 2.9 x 2 .1 x 5.6 cm fluid collection present. There appears to be some communication with the abdominal cavi ty through the inguinal canal. This may reflect a fluid filled inguinal hernia. Seroma or resolving hematoma should be considered. Abscess cannot be entirely excluded. Please correlate with patient' s surgical history. The examination from 2019 did show the presence of a fat containing right inguin al hernia. PELVIS: Bladder: Symmetric distention, no gross wall thickening. Reproductive Organs: Unremarkable as visualized. Lymph Nodes: Within normal limits. Bones: Within normal limits. IMPRESSION: 1. 2.9 x 2.1 x 5.6 cm fluid collection in the right inguinal region with communication with the abdom inal cavity. This may represent a recurrent right inguinal hernia, seroma or resolving hematoma. Ab scess cannot be entirely excluded. Please correlate with patient's surgical history. There was a fa t containing right inguinal hernia present on the examination from 2019. 2. No evidence of acute pulmonary process, pulmonary mass or thoracic adenopathy. 3. No evidence of an intra-abdominal mass or metastatic disease. RADIATION DOSE DELIVERED: 313.53mGy.cm Total DLP DATA REPOSITORY: All CT scans at this facility are submitted to the National Radiology Data Registry (NRDR) Dose Index Registry (DIR) with the [employer] (ACR). RADIATION OPTIMIZATION: All CT scans at this facility use at least one of these dose optimization te chniques: automated exposure control; mA and/or kV adjustment per patient size (includes targeted exa ms where dose is matched to clinical indication); or iterative reconstruction.
[2024-02-17] MEDS: Barium Sulfate 2% W/V-Berry Smoothie 450 ML BTL PO (09:17)
[2024-02-17] MEDS: Barium Sulfate 2% W/V-Creamy Vanilla Smoothie 450 ML BTL PO (09:18)
[2024-02-17 09:52] LABS: CREATININE 0.7 mg/dL (0.70-1.30)
[2024-02-17] MEDS: Normal Saline - Diluent 50 ML VIAL IJ (11:27)
[2024-02-17] MEDS: Omnipaque 350 MG/ML 100 ML BTL 80 ML IJ (11:28)
[2024-02-17 18:43] LABS: PSA, Diagnostic 1.6 ng/mL (<=6.5)
== END 2024-02-17 00:41 ==
LOC: DI 00:21
PROVIDERS: Urology; PCP Physician Assistant; Visit Provider Physician Assistant
DX: N40.2 Nodular prostate without lower urinary tract symptoms (principal); R63.4 Abnormal weight loss
CPT/HCPCS: 74177; 71260; 82565; 84153; J3490

== ENCOUNTER 2024-03-05 13:46 | Outpatient (CLI) | payer MEDICARE, SELFPAY ==
[2024-03-05 14:01] VITALS: BP 151/82; PULSE 84; RESP 18; TEMP 36.6; O2SAT 97
--- NOTE | 2024-03-05 14:07 | PDOC.PAIN_ITS ---
Date of service: 03/05/24 Time of Service: 14:50 Pain Managment Procedure Note Procedure Note Procedure Note: Lumbar Medial Branch Block ? Location: Bilateral Medial Branches ? Levels: L3,4,5? (L4-5, L5-S1 FACET) ? Pre-procedure Diagnosis: M47.817 Spondylosis without myelopathy or radiculopathy, lumbosacral region M47.816 Spondylosis without myelopathy or radiculopathy, lumbar region ? Post-procedure Diagnosis:? The same as above ? Sedation: NONE? Estimated blood loss:? less than 2 cc ? Surgeon:? Faheem Lynch MD COMMENT: PRE PROCEDURE PAIN SCORE: 5 /10 ? Procedure Detail:? The procedure and potential risks were explained to the patient and informed written consent was obtained. The patient was escorted to the procedure room and placed in the prone position. Pillows were utilized for proper positioning and comfort.? Time out was performed in procedure room with nursing staff confirming the patient's identity, procedure to be performed, allergies, and any blood thinning or anti-platelet medications. The patient's lower back was prepped with chlorhexidine and draped in a sterile fashion. Sterile technique was maintained throughout the procedure.? Sterile gloves were used, a face mask was worn, and new single dose vials of all medications were used with the top being swabbed with alcohol and given time to dry prior to withdrawal of medication.? A left AND right-sided oblique fluoroscopic view was obtained, with visualization of the: ?RIGHT and LEFT L3,4 and DORSAL RAMUS L5 AT SACRAL ALA ? junction of the transverse process and superior articular process. Lidocaine 1% was used to anesthetize the skin. A 22-gauge Quincke needle was advanced along the superior margin of the transverse process and lateral to the articular process.? It was directed inferiorly and medially so that the tip struck the junction of the base of the transverse process and the superior articular process. The needle was then walked over the superior aspect of the transverse process and advanced slightly along the course of the L3,4,5 medial branch nerves. Proper placement was verified in A/P, oblique and lateral views under fluoroscopy. At this location, following negative aspiration, 0.5cc 0.5% bupivacaine was injected.? The patient tolerated the procedure well and was transported to the recovery area for observation and discharge instructions. Permanent images saved and recorded. Follow-up:? The patient will return in 2 weeks for confirmatory LMBBs if they? meet the criteria from today's procedure lasting for at least 2 hours.? COMMENT:Pain went from 5/10 to 0/10. Before the patient left patient had greater than 100% pain relief. Patient also has been complaining of weakness in his upper extremities and a 30 pound weight loss. On my exam he appears neurologically intact and has negative Derick sign. He has an upcoming neurology visit at [facility] in a couple of weeks. I have going to order an MRI of the cervical spine.
[2024-03-05 14:28] VITALS: O2SAT 97
[2024-03-05 14:30] VITALS: O2SAT 98
[2024-03-05 14:40] VITALS: O2SAT 97
--- NOTE | 2024-03-05 14:46 | DI.RAD_ITS ---
Exam(s) XR PAIN CLINIC LUMBAR SP 2V EXAM: XR PAIN CLINIC LUMBAR SP 2V CLINICAL HISTORY: Dx: Lumbar Spondylosis. TECHNIQUE: 2D and realtime digital imaging was performed. CONTRAST MATERIAL: None COMPARISON: No exams were available for comparison FINDINGS: Fluoroscopy was provided during pain management treatment of the lumbosacral spine. Bilateral tri le paulo injections at L3, L4, and L5 levels. See separate procedure report for details. IMPRESSION: Total fluoroscopy time 17.6 second RADIATION DOSE DELIVERED: hina Hawthorne=3.34mGy
[2024-03-05] MEDS: Nerve Block Tray 1 EACH MC (14:50)
[2024-03-05] MEDS: Bupivacaine 0.5% Pres-Free 10 ML VIAL IJ (14:50)
== END 2024-03-05 13:47 | disposition home or self-care (01) ==
LOC: PC 13:46
PROVIDERS: PCP Physician Assistant; Visit Provider Anesthesiology Pain Medicine
DX: M54.50 Low back pain, unspecified (principal); M47.817 Spondylosis without myelopathy or radiculopathy, lumbosacral region; M47.816 Spondylosis without myelopathy or radiculopathy, lumbar region
CPT/HCPCS: 00123; 64493; 64494; 72100; J0665

== ENCOUNTER 2024-03-08 03:55 | Outpatient (CLI) | payer MEDICARE, SELFPAY ==
--- NOTE | 2024-03-08 08:15 | DI.MRI_ITS ---
Exam(s) MR CERVICAL SPINE WO EXAM: MR CERVICAL SPINE WO CLINICAL HISTORY: Weakness upper extremities,cervical radiculopathy,m54.12 TECHNIQUE: Multiplanar multisequence MRI of the cervical spine was performed without intravenous con trast. COMPARISON: No exams were available for comparison FINDINGS: BONES: There are endplate osteophytes seen at intervertebral disc spaces are normal. Alignment is nor mal. Bone marrow signal intensity is within normal limits. CERVICAL CORD: Craniovertebral junction is unremarkable. The cervical cord is normal size and signal intensity. SOFT TISSUES: Unremarkable. C2-3: No disc herniation or bulge is identified. No significant central spinal canal or neural forami nal stenosis. C3-4: No disc herniation or bulge is identified. No significant central spinal canal or neural forami nal stenosis C4-5: No disc herniation or bulge is identified. No significant central spinal canal or neural forami nal stenosis C5-6: There is prominence of the osteophyte disc complex and a small central disc herniation. There i s effacement of the anterior subarachnoid space and flattening of the anterior spinal cord. The AP di ameter the spinal canal is 7 mm. There also degenerative changes seen at the uncovertebral joints cau sing mild bilateral neural foraminal narrowing. C6-7: There is mild prominence of the osteophyte disc complex. No significant central spinal canal or neural foraminal stenosis C7-T1: No disc herniation or bulge is identified. No significant central spinal canal or neural edelmira inal stenosis IMPRESSION: 1. At C5-C6, there is a central disc herniation in addition 2 prominent of the osteophyte disc comple x. This all contribute to cause narrowing of the central spinal canal and flattening of the anterior spinal cord. There is normal signal in the spinal cord. 2. In addition, degenerative changes result in mild bilateral neural foraminal stenosis at C5-C6. DATA REPOSITORY:
== END 2024-03-08 04:15 ==
PROVIDERS: PCP Physician Assistant; Visit Provider Anesthesiology Pain Medicine
DX: M54.12 Radiculopathy, cervical region (principal)
CPT/HCPCS: 72141

== ENCOUNTER 2024-04-13 01:29 | Outpatient (CLI) | payer MEDICARE, SELFPAY ==
--- NOTE | 2024-04-30 15:44 | W.PFT ---
Date of service: 04/13/24 Time of Service: 15:00 Pulmonary Function Test Result Indications: ALS Interpretation Spirometry: There is no airflow limitation. MIP and MEP are reduced Impression No airflow obstruction. Muscle pressures are reduced. Clinical Correlation therefore is recommended.
== END 2024-04-13 01:30 | disposition home or self-care (01) ==
LOC: RT 01:29
PROVIDERS: PCP Physician Assistant; Visit Provider Student in an Organized Health Care Education/Training Program
DX: G12.21 Amyotrophic lateral sclerosis (principal)
CPT/HCPCS: 94010

== ENCOUNTER 2024-04-17 04:33 | Outpatient (CLI) | payer MEDICARE, SELFPAY ==
[2024-04-17 12:19] LABS: ALT 37 U/L (16-63); AST 34 U/L (15-37); Albumin 3.7 g/dL (3.4-5.0); Alkaline Phosphatase 82 U/L (46-116); Bilirubin, Direct 0.2 mg/dL (0.0-0.2); Bilirubin, Total 0.83 mg/dL (0.2-1.0); Total Protein 6.9 g/dL (6.4-8.2)
== END 2024-04-17 04:34 | disposition home or self-care (01) ==
PROVIDERS: PCP Physician Assistant; Visit Provider Physician Assistant
DX: Z51.81 Encounter for therapeutic drug level monitoring (principal); G12.21 Amyotrophic lateral sclerosis
CPT/HCPCS: 36415; 80076

== ENCOUNTER → 2024-05-01 13:50 | Outpatient (BNVA) | payer MEDICARE, SELFPAY | PROVIDERS: PCP Physician Assistant; Visit Provider Urology | DX: N40.1 Benign prostatic hyperplasia with lower urinary tract symptoms (principal); R35.1 Nocturia; G12.21 Amyotrophic lateral sclerosis; R63.4 Abnormal weight loss | CPT/HCPCS: 99214 ==

== ENCOUNTER 2024-05-30 15:59 | Outpatient (REF) | payer MEDICARE, SELFPAY ==
[2024-05-30 16:56] LABS: ALT 41 U/L (16-63); AST 34 U/L (15-37); Albumin 3.7 g/dL (3.4-5.0); Alkaline Phosphatase 88 U/L (46-116); Anion Gap 2.9 mmol/L (3-11); BUN 10 mg/dL (7-18); Bilirubin, Total 0.6 mg/dL (0.2-1.0); CO2 38.1 mmol/L (21.0-32.0); CREATININE 0.5 mg/dL (0.70-1.30); Chloride 104 mmol/L (98-107); Estimated GFR 108.37 (mL/min/1.73m2); Glucose 71 mg/dL (74-106); Potassium 4.5 mmol/L (3.5-5.1); Sodium 145 mmol/L (136-145); TSH 1.49 uIU/mL (0.36-3.74); Total Protein 6.5 g/dL (6.4-8.2)
[2024-05-30 22:06] LABS: T3,Free 3.9 pg/mL (2.8-5.3)
== END 2024-05-30 16:00 | disposition home or self-care (01) ==
LOC: NCHCN 15:59
PROVIDERS: PCP Physician Assistant; Visit Provider Physician Assistant
DX: E05.90 Thyrotoxicosis, unspecified without thyrotoxic crisis or storm (principal); R63.4 Abnormal weight loss
CPT/HCPCS: 80053; 84439; 84443; 84481

== ENCOUNTER 2024-06-30 10:50 | Emergency (ER) | payer MEDICARE, SELFPAY ==
[2024-06-30] VITALS (13 sets, daily range): BP systolic 137–171; BP diastolic 83–109; PULSE 93–105; RESP 16–26; TEMP 36.9; O2SAT 96–98
--- NOTE | 2024-06-30 11:30 | DI.RAD_ITS ---
Exam(s) XR ABD FLAT UPRIGHT PA CHEST EXAM: Flat and upright views of the abdomen CLINICAL HISTORY: Constipation, decreased appetite. COMPARISON: CR XR CHEST 2V PA LATERAL from 01/05/[address] CHEST/ABD/PEL W from 02/17/2024 TECHNIQUE: Supine and upright views of the abdomen were performed. FINDINGS: BOWEL GAS PATTERN: Nondistended.No free air. There is a moderate quantity of stool, greater in the r ectum and right colon. CALCIFICATIONS: No urinary tract calcifications. OSSEOUS STRUCTURES: Normal for age. CHEST: The heart size is normal. The lungs are clear. Soft tissues: Unremarkable. IMPRESSION: 1. Nonobstructive bowel gas pattern. 2. Moderate quantity of stool. 3. Clear lungs. DATA REPOSITORY: RADIATION DOSE DELIVERED:
--- NOTE | 2024-06-30 11:33 | W.ED.GENAD ---
Discharge Plan Disposition Patient Disposition: Home Condition: Stable Discharge Details Clinical Impression: Dehydration, Constipation, Generalized weakness Primary Care Provider: Duong Gomez ED Provider: Cecilia Feldman Home Meds and New Rx's Prescriptions: Continued cyclosporine [Restasis] 0.05 % dropperette 1 drp ophthalmic (eye) Q12H mecobalamin (vitamin B12) 1,000 mcg tablet,chewable 1,000 mcg PO DAILY pravastatin 40 mg tablet 40 mg PO QHS amino acids Capsule See Rx Instructions PO .COMPLEX Rx Instructions: 1 TBS L-Serine powder BID daily PO; cholecalciferol (vitamin D3) [D3 DOTS] 50 mcg (2,000 unit) tablet 50 mcg PO DAILY ondansetron 4 mg tablet,disintegrating 4 mg PO TID PRN Patient Comments: DISSOLVE ONE TABLET ON THE TONGUE THREE TIMES A DAY cyproheptadine 4 mg tablet 4 mg PO BID Patient Comments: TAKE ONE TABLET BY MOUTH TWICE A DAY fluticasone propionate [Flonase Allergy Relief] 50 mcg/actuation spray,suspension 2 spray intranasal DAILY PRN Rx Instructions: administer into each nostril Discharge Instructions Instructions: Constipation, Adult ED, Dehydration, Adult ED, Weakness ED Additional Instructions: At this time your labs do show some dehydration no evidence of urinary tract infection. You do have constipation noted on the x-ray. Please take the stool softener as previously prescribed. Take 1 until you have a bowel movement. You may also try gentle laxative such as MiraLAX. Try prunes and prune juice. Follow up with primary care provider in 3-5 days. Return to ED sooner if any worsening or concerns. Increase oral fluid. Please call [facility] neurology regarding the weakness for sooner appointment. You are also placed on the care management list to assist you in getting a sooner appointment. Thank you for allowing us to care for you today. Referrals: Duong Gomez [Primary Care Provider] - 5 days HPI General Mode of arrival: EMS. Date/Time Provider Initiated Documentation: 06/30/24 11:20. Limitations to Documentation: no limitations. Information obtained by: patient, family, RN notes reviewed and old records reviewed. HPI Narrative: 73-year-old male with a history of ALS which was recently diagnosed in February presents to the ER with gradually increasing weakness, decreased appetite and no bowel movement for the last 4 days. He normally has bowel movement every day. Denies any abdominal distention or abdominal pain. Denies any problems urinating or burning with urination. He does walk at home with a walker. He was given Zofran prior to arrival by EMS. Denies any chest pain does endorse occasional shortness of breath. He has followed with neurolog[place] [facility] [place] Related Data Home Medications ?Medication ?Instructions ?Recorded ?Confirmed cyclosporine 0.05 % eye drops in a 1 drp ophthalmic (eye) Q12H 10/07/23 06/30/24 dropperette (Restasis) mecobalamin (vitamin B12) 1,000 1,000 mcg PO DAILY 10/19/23 06/30/24 mcg chewable tablet pravastatin 40 mg tablet 40 mg PO QHS 05/01/24 06/30/24 amino acids See Rx Instructions PO .COMPLEX 06/30/24 06/30/24 cholecalciferol (vitamin D3) 50 50 mcg PO DAILY 06/30/24 06/30/24 mcg (2,000 unit) tablet (D3 DOTS) cyproheptadine 4 mg tablet 4 mg PO BID 06/30/24 06/30/24 fluticasone propionate 50 2 spray intranasal DAILY PRN 06/30/24 06/30/24 mcg/actuation nasal spray,suspension (Flonase Allergy Relief) ondansetron 4 mg disintegrating 4 mg PO TID PRN 06/30/24 06/30/24 tablet Allergies Allergy/AdvReac Type Severity Reaction Status Date / Time No Known Allergies Allergy Verified 06/30/24 10:57 General Stated Complaint: Nausea/Vomit/Diar MANUEL: 3 Review of Systems All systems reviewed & are unremarkable except as noted in HPI and below Constitutional Constitutional: Reports lethargy, Reports poor appetite and Reports weakness Gastrointestinal Gastrointestinal: Denies abdominal pain, Reports constipation, Reports nausea and Denies vomiting Neurologic Neurologic: Reports weakness Exam Narrative Exam Narrative: Constitutional: Alert and oriented x3. Appears stated age. Normal body habitus. Head: Normocephalic, no trauma. Eyes: Pupils PERRL, Red reflex noted, EOM's intact. Eyelids symmetrical without lesions, discharge, or swelling. ENT: Bilateral TM's WNL, External ear normal to inspection, no mastoid TTP, swelling, or erythema, Nasal turbinates WNL, no nasal discharge. Normal dentition, Posterior pharynx WNL, no exudate. Chest: RRR, Normal S1, S2, distal pulses intact. Resp: Lungs clear to auscultation bilaterally, no wheezes, rales, or rhonchi. Abdomen: Soft, non-distended, Normoactive bowel sounds all 4 quads. Musculoskeletal: Normal gait, Moves all 4 extremities without difficulty. Skin: No suspicious rashes or lesions. Capillary refill less than 2 sec. Neurologic: Cranial nerves II-XII intact. Alert and oriented x 3. Motor: No deficits noted. Sensory: Intact bilaterally all 4 extremities. Generalized weakness 4 out of 5 all extremities. Hematologic/Lymphatic: No ecchymosis, no lymphadenopathy. Course Vital Signs Vital signs: Vital Signs Temperature 36.9 C 06/30/24 10:50 Pulse 105 H 06/30/24 10:50 Respiratory Rate 16 06/30/24 10:50 Blood Pressure 162/87 H 06/30/24 10:50 Pulse Oximetry 97 06/30/24 10:50 Temperature 36.9 C 06/30/24 11:09 Temperature Source Oral 06/30/24 11:09 Pulse 100 H 06/30/24 11:09 Respiratory Rate 16 06/30/24 11:09 Blood Pressure 154/109 H 06/30/24 11:09 Blood Pressure Position Supine 06/30/24 11:09 Pulse Oximetry 96 06/30/24 11:09 Oxygen Delivery Method Room Air 06/30/24 11:09 Oxygen Flow Rate 0 06/30/24 10:50 Pain Level 0 06/30/24 11:09 Medical Decision Making 73-year-old male with a history of ALS which was recently diagnosed in February presents to the ER with gradually increasing weakness, decreased appetite and no bowel movement for the last 4 days. He normally has bowel movement every day. Denies any abdominal distention or abdominal pain. Denies any problems urinating or burning with urination. He does walk at home with a walker. He was given Zofran prior to arrival by EMS. Denies any chest pain does endorse occasional shortness of breath. He has followed with neurology for his [place] [facility] [place]. Workup ordered including CBC CMP magnesium urinalysis chest abdomen x-ray ordered. Differential diagnosis includes but limited to generalized deconditioning due to the ALS, gastroenteritis, viral illness. Labs show white blood cell count slightly elevated at 12.34, hemoglobin 18.3 hematocrit 54, CMP largely within normal limits. X-ray shows moderate stool burden, no gaseous distention. Chest x-ray within normal limits. Patient given a 500 cc normal saline bolus. Will discuss strict return instructions and follow-up with neurologist at [facility] [place]. Urinalysis shows 15 ketones no evidence of urinary tract infection. I did consider magnesium citrate however with the dehydration rather go for more gentle constipation treatment to include Colace and MiraLAX. Patient given discharge instructions by ED staff, discussed strict return instructions and follow-up care. Patient was placed on the care management list to assist in getting a sooner appointment with neurology. This text was generated using [email or web address] system, please disregard any oddities of phrase or misspellings. Medical Records Medical records reviewed: Yes I reviewed the patient's medical records. Imaging Data Radiologic Study: Imaging: X-Ray Radiologist's impression: TECHNIQUE: Imaging protocol: Radiologic exam. Complete acute abdomen series, including 2 or more views of the abdomen and a single view chest. COMPARISON: CT CHEST/ABD/PEL W 02/17/2024 11:26 AM FINDINGS: Lungs: Normal. No consolidation. Pleural spaces: Normal. No pleural effusions. No pneumothorax. Heart/Mediastinum: Normal. No cardiomegaly. Gastrointestinal tract: Moderate stool burden throughout the colon. Nonspecific bowel gas pattern, without gaseous distension. Intraperitoneal space: Normal. No free air. Bones/joints: Normal. No acute fracture. Soft tissues: Normal. IMPRESSION: Moderate stool burden throughout the colon. Nonspecific bowel gas pattern, without gaseous distension. Thank you for allowing us to participate in the care of your patient. Dictated and Authenticated by: Sharon Vidal MD Lab Data Lab results reviewed: Yes I reviewed the patient's lab results. Labs: Laboratory Tests Range/Units 06/30/24 10:45 WBC (4.4-10.8) 10^3/uL 12.34 H RBC (4.36-5.78) 10^6/uL 6.10 H Hgb (13.5-17.5) g/dL 18.3 H Hct (40.0-50.0) % 54.0 H MCV (80-95) fL 89 MCH (27.0-33.0) pg 30.0 MCHC (32.0-36.0) % 33.9 RDW (11.8-14.1) % 13.7 Plt Count (130-400) 10^3/uL 303 MPV (8.0-11.0) fL 10.8 Immature Gran % % 0.5 Neutrophils % % 82.2 Lymphocytes % % 10.6 Monocytes % % 5.3 Eosinophils % % 0.3 Basophils % % 1.1 Nucleated RBC % (0.0-0.3) % 0.0 Absolute Neutrophils (1.2-6.7) 10^3/uL 10.14 H Absolute Lymphocytes (1.2-3.4) 10^3/uL 1.31 Absolute Monocytes (0.1-0.8) 10^3/uL 0.65 Absolute Eosinophils (0.0-0.7) 10^3/uL 0.04 Absolute Basophils (0.0-0.2) 10^3/uL 0.14 RBC Morphology Normal Sodium (136-145) mmol/L 142 Potassium (3.5-5.1) mmol/L 4.0 Chloride (98-107) mmol/L 102 Carbon Dioxide (21.0-32.0) mmol/L 37.7 H Anion Gap (3-11) mmol/L 2.3 L BUN (7-18) mg/dL 12 Creatinine (0.70-1.30) mg/dL 0.6 L Est GFR (CKD-EPI 2020) (mL/min/1.73m2) 102.56 Glucose (74-106) mg/dL 106 Calcium (8.5-10.1) mg/dL 10.1 Magnesium (1.8-2.4) mg/dL 2.2 Total Bilirubin (0.2-1.0) mg/dL 0.8 AST (15-37) U/L 42 H ALT (16-63) U/L 53 Alkaline Phosphatase (46-116) U/L 94 Total Protein (6.4-8.2) g/dL 7.4 Albumin (3.4-5.0) g/dL 3.9 Quality:SDOH Health Related Social Needs: No Data to Display PFSH All Active Problems (Updated 06/30/24 @ 13:52 by Cecilia Feldman NP) Generalized weakness (Acute) Constipation (Acute) Dehydration (Acute) Conductive hearing loss, external ear (Acute) ALS (amyotrophic lateral sclerosis) (Acute) Cervical stenosis of spine (Acute) Right inguinal hernia (Acute) Lumbar spondylosis (Acute) Hand muscle weakness (Acute) Impacted cerumen, bilateral (Acute) Wears hearing aid in both ears (Acute) Lightheadedness (Acute) Chronic rhinitis (Acute) Postnasal drip (Acute) Crackling sound in both ears (Acute) Unable to pass flatus (Acute) Sensorineural hearing loss of both ears (Acute) Middle ear effusion (Acute) Squamous cell skin cancer (Acute) Skin lesion (Acute) Diverticulitis of large intestine with abscess without bleeding (Acute 05/16/15) Prostatitis (Acute 01/31/12) Diverticulitis of colon (Acute) Basal cell carcinoma of face (Acute) Status post cataract extraction and insertion of intraocular lens of left eye (Acute 02/06/18) Prostate nodule (Acute 05/16/15) Hyperlipidemia (Acute) Essential hypertension (Acute 03/22/13) Diastasis recti (Acute 06/30/16) Cervical radiculopathy (Acute 06/30/16) left Cataract (Acute 01/31/12) RIGHT Actinic keratosis (Acute 05/16/15) Medical History Bilateral hearing loss Obstructive sleep apnea syndrome Chest pain Per pt and got it worked up ended up being nothing. (2019) Dizziness and giddiness Low back pain Cobalamin deficiency Nuclear sclerotic cataract of left eye Posterior subcapsular age-related cataract of left eye Diverticulitis large intestine Hypertension Hyperlipidemia Surgical History Hx of inguinal hernia repair (~12/2023) Right side History of colonoscopy History of basal cell carcinoma excision History of eye surgery Family History Mother , 84 Essential hypertension Diverticulosis of colon Hyperlipidemia Father , 79 Essential hypertension Diverticulosis of colon Heart disease Hyperlipidemia Sister , 78 Diabetes Essential hypertension Heart disease Hyperlipidemia Stroke Sister , 75 Diabetes Hyperlipidemia Social History Smoking/Tobacco Use Status: Never Second Hand Exposure: Yes Smoking risk assessment performed?: Yes Alcohol Intake: former Drug use: Never Substance use type: does not use Caregiver/Support person: No Household members: spouse Housing: house Number of Children: 2 Communication Needs: Corrective Lenses Do you need help understanding health information?: Never current occupation: Retired Pets and animals: Yes Pets and animals: cat(s) Sexually active: Yes Do you think of yourself as: straight/heterosexual Current gender identity: decline to answer What is your relationship status?: How often do you talk on the phone with friends or family?: three or more times per week How often do you get together with friends or relatives?: twice per week How often do you attend buddhism or congregational services?: 4 or more times per year Do you belong to any clubs or organized social groups?: yes Panel score (0-1 are the most socially isolated patients): 4 What type of physical activity do you participate in: walking Duration: > 90 minutes/day Frequency: daily Chrissy/Holiness: Gnosticism Special chrissy needs: No Seatbelt use: always Drive intox 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
[2024-06-30 11:44] LABS: Abs Immature Grans 0.06 10^3/uL (0.0-0.06); Absolute Eosinophil Count 0.04 10^3/uL (0.0-0.7); Absolute Lymphocyte Count 1.31 10^3/uL (1.2-3.4); Absolute Neutrophil Count 10.14 10^3/uL (1.2-6.7); Basophils % 1.1 %; Eosinophils % 0.3 %; HGB 18.3 g/dL (13.5-17.5); Immature Grans % 0.5 %; Lymphocytes % 10.6 %; MCHC 33.9 % (32.0-36.0); MCV 89 fL (80-95); MPV 10.8 fL (8.0-11.0); Monocytes % 5.3 %; Neutrophils % 82.2 %; Platelet Count 303 10^3/uL (130-400); RDW 13.7 % (11.8-14.1); WBC 12.34 10^3/uL (4.4-10.8)
[2024-06-30 11:45] LABS: Absolute Basophil Count 0.14 10^3/uL (0.0-0.2); Absolute Monocyte Count 0.65 10^3/uL (0.1-0.8)
[2024-06-30 11:55] LABS: ALT 53 U/L (16-63); AST 42 U/L (15-37); Albumin 3.9 g/dL (3.4-5.0); Alkaline Phosphatase 94 U/L (46-116); Anion Gap 2.3 mmol/L (3-11); BUN 12 mg/dL (7-18); Bilirubin, Total 0.8 mg/dL (0.2-1.0); CO2 37.7 mmol/L (21.0-32.0); CREATININE 0.6 mg/dL (0.70-1.30); Calcium 10.1 mg/dL (8.5-10.1); Chloride 102 mmol/L (98-107); Estimated GFR 102.56 (mL/min/1.73m2); Glucose 106 mg/dL (74-106); Magnesium 2.2 mg/dL (1.8-2.4); Sodium 142 mmol/L (136-145); Total Protein 7.4 g/dL (6.4-8.2)
[2024-06-30] MEDS: Normal Saline 500 ML IV (12:17)
[2024-06-30 12:21] LABS: Diff Comment Diff Reviewed; RBC Morphology Normal
--- NOTE | 2024-06-30 12:52 | DI.VRAD_ITS ---
PROCEDURE INFORMATION: Exam: XR Complete Acute Abdomen Series Including Chest Exam date and time: 06/30/2024 12:06 PM Age: 73 years old Clinical indication: Constipation TECHNIQUE: Imaging protocol: Radiologic exam. Complete acute abdomen series, including 2 or more views of the abdomen and a single view chest. COMPARISON: CT CHEST/ABD/PEL W 02/17/2024 11:26 AM FINDINGS: Lungs: Normal. No consolidation. Pleural spaces: Normal. No pleural effusions. No pneumothorax. Heart/Mediastinum: Normal. No cardiomegaly. Gastrointestinal tract: Moderate stool burden throughout the colon. Nonspecific bowel gas pattern, without gaseous distension. Intraperitoneal space: Normal. No free air. Bones/joints: Normal. No acute fracture. Soft tissues: Normal. IMPRESSION: Moderate stool burden throughout the colon. Nonspecific bowel gas pattern, without gaseous distension. Dictated and Authenticated by: Sharon Vidal MD. Orderin Gaston Brooks MD
[2024-06-30 13:36] LABS: Bilirubin Negative (Negative); Blood Negative (Negative); Clarity Sl Cloudy (Clear); Glucose Negative (Negative); Ketones 15 mg/dL (Negative); Leukocyte Esterase Negative (Negative); Nitrite Negative (Negative); Specific Gravity 1.015 (1.005-1.025); Urobilinogen 0.2 mg/dL (Up to 0.2)
== END 2024-06-30 14:04 | disposition home or self-care (01) ==
PROVIDERS: Emergency Provider Registered Nurse Emergency; PCP Physician Assistant
DX: E86.0 Dehydration (principal); K59.00 Constipation, unspecified; R53.1 Weakness; I10 Essential (primary) hypertension; E78.5 Hyperlipidemia, unspecified; G12.21 Amyotrophic lateral sclerosis
CPT/HCPCS: 36415; 80053; 96360; 99284; 74022; 81003; 83735; 85025